=== PATIENT | male | born 1950 | race Caucasian/White ===

== ENCOUNTER 2021-11-26 15:54 | Outpatient (RCR) | payer MEDICARE, BC, SELFPAY ==
[2021-11-26 16:25] LABS: Basophils Absolute Auto 0.04 K/uL (0.00-0.30); Basophils Percent Auto 0.7 % (0.0-3.0); Eosinophils Percent Auto 6.6 % (0.0-7.0); Hematocrit 40.5 % (37.0-53.0); Hemoglobin* 12.6 gm/dL (13.5-17.5); Lymphocytes Absolute Auto 1.52 K/uL (0.90-2.90); Mean Corpuscular HGB Conc 31 gm/dL (32-36); Mean Corpuscular Hemoglobin 25 pg (26-34); Mean Corpuscular Volume 82 fL (80-100); Monocytes Percent Auto 8.4 % (0.0-11.0); Neutrophils Percent Auto 59.3 % (42.0-72.0); Platelet Count* 313 K/uL (140-440); RDW Coefficient of Variation % 13.7 % (11.5-15.5); Red Blood Count 4.96 m/uL (4.30-5.90); White Blood Count* 6.07 K/uL (4.50-11.00)
[2021-11-26 16:32] LABS: Slide Review Reflex No
[2021-11-26 17:20] LABS: PSA Diagnostic* < 0.06 ng/mL (0.10-4.00)
== END 2022-11-05 11:50 | disposition home or self-care (01) ==
LOC: LAB 15:54
PROVIDERS: Visit Provider Family Medicine
DX: C61 Malignant neoplasm of prostate (principal); R14.0 Abdominal distension (gaseous)
CPT/HCPCS: 36415; 84153; 85025

== ENCOUNTER 2022-02-17 10:36 | Outpatient (CLI) | payer MEDICARE, BC, SELFPAY ==
--- OUTSIDE RECORDS SUMMARY | 2022-02-17 11:17 | XMS_ITS | Encounter Summary ---
:1950 Author Organization [place] Address [address] [place] [address] Care Team Providers Name Role Phone Nico Joseph MD Primary Care Provider Nico Joseph MD Unavailable Pardeep Gallagher MD Unavailable Reason for Visit Reason Onset Date Comments Results 06/26/2021 Comparison of blood test and urine test Encounter Details Date Type Department Care Team Description 06/26/[address] [facility] Pardeep Gallagher MD Results (Comparison of Urology Clinic [address] [place] [address] blood test and urine [place] 394 test) [address] [place], [place] [address] [place] [address] (Wo rk) [address] [phone] Social History Tobacco Use Types Packs/Day Years Used Date Smoking Tobacco: Never Assessed Sex Assigned at Date Recorded Not on file COVID-19 Exposure Response Date Recorded In the last 10 days, have you been in contact Unable to asse ss 06/25/2021 1:55 PM CDT with someone who was confirmed or suspected to have Coronavirus/COVID-19? documented as of this encounter Miscellaneous Notes Telephone Encounter - Angelita Nunes RN - 06/27/2021 10:33 AM CDT Spoke to pt. Informed pt that lab results will take a couple of weeks to process. Will let pt know when results are received. Angelita Nunes RN MSN Telephone Encounter - Doreen Kennedy - 06/26/2021 4:02 PM CDT [facility] Call Center Phone Message May a detailed message be left on voicemail: yes Reason for Call: Requesting Results Name/type of test: Bloodwork and Urine test comparison per patient Date of test: 06/19/21 Was test done at a location other than [facility] (Please fill in the location if not [facility])?: No Patient is calling to have Dr. Gallagher go over his recent urine test and compare it to his most recent blood tests. He states he called last week to discuss and missed a call back. Please reach out to patient at [phone] and if he doesn't answer, please call 's cell at [phone]. Thank you. Action Taken: Other: Urology Travel Screening: Not Applicable documented in this encounter Plan of Treatment Not on filedocumented as of this encounter Visit Diagnoses Not on filedocumented in this encounter Care Teams Materials And Corrosion Engineer Relationship Specialty Start Date End Date Nico Joseph MD PCP - General Family Medicine 05/06/21 [facility] [address] [place] [address] Nico Joseph MD Referring Physician Family Medicine 05/12/21 [facility] [address] [place] [address] Pardeep Gallagher MD MD Urology 05/12/[address] [address] documented as of this encounter
--- OUTSIDE RECORDS SUMMARY | 2022-02-17 11:17 | XMS_ITS | Encounter Summary ---
:1950 Author Organization [place] Address [facility] [place] [address] Care Team Providers Name Role Phone Nico Joseph MD Primary Care Provider Nico Joseph MD Unavailable Pardeep Gallagher MD Unavailable Reason for Visit Reason Onset Date Comments Pre Visit Planning - Done 06/05/2021 Encounter Details Date Type Department Care Team Description 06/05/2021 PRE VISIT [facility] Pardeep Gallagher MD Pre Visit Planning - Urology Clinic [address] [place] [address] Done [place] [address] [place], [place] 4th Floor [address] [place], [place] [phone] (Wo rk) [id number] [phone] Social History Tobacco Use Types Packs/Day Years Used Date Smoking Tobacco: Never Assessed Sex Assigned at Date Recorded Not on file documented as of this encounter Plan of Treatment Not on filedocumented as of this encounter Visit Diagnoses Not on filedocumented in this encounter Care Teams Media Services Director Relationship Specialty Start Date End Date Nico Joseph MD PCP - General Family Medicine 05/06/21 [facility] [address] [place] [address] Nico Joseph MD Referring Physician Family Medicine 05/12/21 [facility] [address] [place] [address] Pardeep Gallagher MD MD Urology 05/12/[address] [place] [address] documented as of this encounter
--- OUTSIDE RECORDS SUMMARY | 2022-02-17 11:17 | XMS_ITS | Encounter Summary ---
:1950 Author Organization [place] Address [address] [facility] [place] [address] Care Team Providers Name Role Phone Nico Joseph MD Primary Care Provider Nico Joseph MD Unavailable Pardeep Gallagher MD Unavailable Pardeep Gallagher MD Unavailable Reason for Visit Reason Onset Date Comments Pre Visit Planning - Done 07/15/2021 Encounter Details Date Type Department Care Team Description 07/15/2021 PRE VISIT [facility] Pardeep Gallagher MD Pre Visit Planning - Urology Clinic [address] [place] [address] Done [place] [address] [place], [place] [address] [place] [address] (Wo rk) [address] [phone] Social History Tobacco Use Types Packs/Day Years Used Date Smoking Tobacco: Never Assessed Sex Assigned at Date Recorded Not on file COVID-19 Exposure Response Date Recorded In the last 10 days, have you been in contact Unable to asse ss 06/25/2021 1:55 PM CDT with someone who was confirmed or suspected to have Coronavirus/COVID-19? documented as of this encounter Plan of Treatment Not on filedocumented as of this encounter Visit Diagnoses Not on filedocumented in this encounter Care Teams Hand Crocheter Relationship Specialty Start Date End Date Nico Joseph MD PCP - General Family Medicine 05/06/21 [facility] [address] [place] [address] Nico Joseph MD Referring Physician Family Medicine 05/12/21 [facility] [address] [place] [address] Pardeep Gallagher MD MD Urology 05/12/[address] [place] [address] Pardeep Gallagher MD Assigned Surgical Provider 06/29/[address] [place] [address] documented as of this encounter
--- OUTSIDE RECORDS SUMMARY | 2022-02-17 11:17 | XMS_ITS | Encounter Summary ---
:1950 Author Organization [place] Address [address] [place] [address] Care Team Providers Name Role Phone Nico Joseph MD Primary Care Provider Nico Joseph MD Unavailable Pardeep Gallagher MD Unavailable Encounter Details Date Type Department Care Team Description 06/19/2021 [facility] Urology Pardeep Gallagher MD [address] [place] [address] [phone] Social History Tobacco Use Types Packs/Day Years Used Date Smoking Tobacco: Never Assessed Sex Assigned at Date Recorded Not on file COVID-19 Exposure Response Date Recorded In the last 10 days, have you been in contact with No / Unsu re 06/18/2021 2:09 PM CDT someone who was confirmed or suspected to have Coronavirus/COVID-19? documented as of this encounter Miscellaneous Notes Telephone Encounter - Angelita Nunes RN - 06/19/2021 2:17 PM CDT Images from the original note were not included. Ana Luisa Seo Angie J, RN Cc: Susie Bradley Caller: Unspecified (Today, 12:03 PM) Results have been received and sent to scanning. I have forwared the PSA results to [facility] as requested. Telephone Encounter - Angelita Nunes RN - 06/19/2021 1:24 PM CDT Spoke to pt. Informed pt to PSA order needing to be done today or tomorrow. Pt reports he had lab done at local clinic 3 weeks ago. Advised pt to have them fax to clinic [facility]. He agrees. Provided pt clinic fax number. Angelita Nunes RN MSN Telephone Encounter - Angelita Nunes RN - 06/19/2021 12:17 PM CDT Spoke to Kenna Montiel for MyProstate Score. PSA needs to be done within the last 6 months in orderto have accurate test done. Informed her last documented was 04/22/20. She reports an updated PSA needs to be done today or tomorrow. She would like results faxed to her at [phone]. Angelita Nunes RN MSN Telephone Encounter - Doreen Kennedy - 06/19/2021 12:02 PM CDT [facility] Call Center Phone Message May a detailed message be left on voicemail: yes Reason for Call: Tiana from [facility] is calling regarding patient's most recent PSA. She states the paperwork shows the date on the PSA as 04/19/19 and is wondering if that is an error. If so, PSA will need to be redrawn. If not an error, please reach out with correct date of most recent PSA. Please call Tiana at [phone] [facility] either way as they can freeze thesample if needed. Thank you. Action Taken: Other: Urology Travel Screening: Not Applicable documented in this encounter Plan of Treatment Scheduled Orders Name Type Priority Associated Diagnoses Order S chedule PSA tumor marker Lab Routine PSA elevation Expected: 06/19/2021 (Approximate), Expires: 06/19/2022 documented as of this encounter Visit Diagnoses Diagnosis PSA elevation - Primary Elevated prostate specific antigen (PSA) documented in this encounter Care Teams Manager Transfer Relationship Specialty Start Date End Date Nico Joseph MD PCP - General Family Medicine 05/06/21 [facility] [address] [place] [address] Nico Joseph MD Referring Physician Family Medicine 05/12/21 [facility] [address] [place] [address] Pardeep Gallagher MD MD Urology 05/12/[address] [place] [id number] documented as of this encounter
--- OUTSIDE RECORDS SUMMARY | 2022-02-17 11:17 | XMS_ITS | Encounter Summary ---
:1950 Author Organization [place] Address [address] [facility] [place] [address] Care Team Providers Name Role Phone Nico Joseph MD Primary Care Provider Nico Joseph MD Unavailable Pardeep Gallagher MD Unavailable Reason for Referral Diagnostic Imaging MRI (Routine) - Authorized Specialty Diagnoses / Procedures Referred By Contact Refer red To Contact Diagnoses PSA elevation Pardeep Gallagher MD Procedures MR Prostate wo & w Contrast [address] [facility] [address] [place], [place] [address] Referral ID Status Reason Start Date Expiration Date Visits V isits Requested Authorized [id number] Authorized 06/18/2021 06/18/2022 1 1 Reason for Visit Reason Comments Consult Elevated PSA Consultation (Routine) - Pending Review Specialty Diagnoses / Procedures Referred By Contact Refer red To Contact Urology Diagnoses PSA elevation Nico Joseph MD [facility] [address] [facility] [address] 4th [place] [address] [place] [address] Phone: Fax: Referral ID Status Reason Start Date Expiration Date Visits V isits Requested Authorized [id number] Pending 05/06/2021 05/06/2022 1 1 Review Encounter Details Date Type Department Care Team Description 06/18/2021 Office Visit [facility] Nico Adamson MD [facility] [address] [place] [address] PSA elevation [facility] [place] Pardeep Gallagher MD [address] [facility] [address] [place], [place] [address] [address] [facility] [address] 4th [place] [address] Social History Tobacco Use Types Packs/Day Years Used Date Smoking Tobacco: Never Assessed Sex Assigned at Date Recorded Not on file COVID-19 Exposure Response Date Recorded In the last 10 days, have you been in contact with No / Unsu re 06/18/2021 2:09 PM CDT someone who was confirmed or suspected to have Coronavirus/COVID-19? documented as of this encounter Last Filed Vital Signs Vital Sign Reading Time Taken Comments Blood Pressure 126/82 06/18/2021 2:42 PM CDT Pulse 59 06/18/2021 2:42 PM CDT Temperature - - Respiratory Rate - - Oxygen Saturation - - Inhaled Oxygen Concentration - - Weight 102.1 kg (225 lb) 06/18/2021 2:42 PM CDT Height 182.9 cm (6') 06/18/2021 2:42 PM CDT Body Mass Index 30.52 06/18/2021 2:42 PM CDT documented in this encounter Patient Instructions Patient InstructionsMaryan Nolan - 06/18/2021 3:54 PM CDT Please schedule a prostate MRI and Dr. Gallagher will call you with the results. It was a pleasure meeting with you today. Thank you for allowing me and my team the privilege of caring for you today. YOU are the reason we are here, and I truly hope we provided you with the excellent service you deserve. Please let us know if there is anything else we can do for you so that we can be sure you are leaving completely satisfied with your care experience. documented in this encounter Progress Notes Pardeep Gallagher MD - 06/18/2021 2:30 PM CDT Chief Complaint: Elevated PSA Consult or Referral: Mr. Jay Ferris is a 71 year old male seen in consultation from Dr. Joseph. History of Present Illness: Jay Ferris is a very pleasant 71 year old male who presents with elevated PSA. He denies lowerurinary symptoms. He denies family history of prostate cancer. He is not a smoker. ECOG status 0 Past Medical History: No past medical history on file. Past Surgical History: No past surgical history on file. Medications Current Outpatient Medications Medication ??? lisinopril (ZESTRIL) 20 MG tablet ??? aspirin (ASA) 81 MG EC tablet ??? doxycycline monohydrate (MONODOX) 100 MG capsule No current facility-administered medications for this visit. Family History: No family history on file. Social History: Social History Socioeconomic History ??? Marital status: Spouse name: Not on file ??? Number of children: Not on file ??? Years of education: Not on file ??? Highest education level: Not on file Occupational History ??? Not on file Tobacco Use ??? Smoking status: Not on file ??? Smokeless tobacco: Not on file Substance and Sexual Activity ??? Alcohol use: Not on file ??? Drug use: Not on file ??? Sexual activity: Not on file Other Topics Concern ??? Not on file Social History Narrative ??? Not on file Social Determinants of Health Financial Resource Strain: Not on file Food Insecurity: Not on file Transportation Needs: Not on file Physical Activity: Not on file Stress: Not on file Social Connections: Not on file Intimate Partner Violence: Not on file Housing Stability: Not on file Allergies: Patient has no known allergies. Review of Systems 10 point ROS of systems including Constitutional, Eyes, Respiratory, Cardiovascular, Gastroenterology, Genitourinary, Integumentary, Muscularskeletal, Psychiatric were all negative except for pertinentpositives noted in my HPI. Physical Exam: Patient is a 71 year old male Body mass index is 30.52 kg/m??., Vitals: Blood pressure 126/82, pulse 59, height 1.829 m (6'), weight 102.1 kg (225 lb). General Appearance Adult: Alert, no acute distress, oriented HENT: throat/mouth:normal, good dentition Neck: No adenopathy,masses or thyromegaly Lungs: no respiratory distress, or pursed lip breathing Heart: No obvious jugular venous distension present Abdomen: soft, nontender, no organomegaly or masses Lymphatics: No cervical or supraclavicular adenopathy Musculoskeltal: extremities normal, no peripheral edema Skin: no suspicious lesions or rashes Neuro: Alert, oriented, speech and mentation normal Psych: affect and mood normal Gait: Normal : REECE anodular, symmetric Labs and Pathology: I reviewed all applicable laboratory and pathology data and went over findings with patient Significant for No results found for: PSA Imaging: No relevant imaging to review today Outside and Past Medical records: I spent 20 minutes reviewing outside and past medical records. Assessment and Plan: Assessment: Elevated PSA We had a long discussion about the utility of PSA screening. We talked about the Pros and Cons. We discussed the findings of the PLCO and EORTC studies. We discussed the results of the Scandinavian trial of treatment vs. observation in clinically detected prostate cancer as well as the results of the PIVOT trial in the context of screen-detected cancer. We discussed the recommendations by the AUA, and USPSTF. We also discussed the significant (2-6%) and rising risk of biopsy associated sepsis. We also discussed the emerging role of MRI in the diagnosis of prostate cancer and the potential forperforming MRI-Ultrasound Fusion biopsy if suspicious lesions are noted. We also discussed some of the new methods of risk stratification for prostate cancer including 4K, PHI, Exsome Dx to identify clinically significant and aggressive prostate cancer before biopsy. New data suggest that combination of these tests with MRI could avoid unnecessary prostate biopsy in significant percent of men with elevated PSA. Another available option in this group is MyProstateScore which provided 96% sensitivity and 97% negative predictive value, and would have prevented 32% of unnecessary biopsies, missing 3.7% of grade group ?2 cancers at the levels below 10. Patient has decided he would like to proceed with prostate MRI and MPS test Plan: Schedule for prostate MRI Send off urine sample for MPS Call with the results to discuss the next steps 60 total minutes spent on the date of the encounter including direct interaction with the patient, performing chart review, documentation and further activities as noted above. Pardeep Gallagher MD Department of Urology [facility] documented in this encounter Nursing Notes WillinghamBlaine - 06/18/2021 2:30 PM CDT Chief Complaint Patient presents with ??? Consult Elevated PSA Blood pressure 126/82, pulse 59, height 1.829 m (6'), weight 102.1 kg (225 lb). Body mass index is 30.52 kg/m??. There is no problem list on file for this patient. No Known Allergies Current Outpatient Medications Medication Sig Dispense Refill ??? lisinopril (ZESTRIL) 20 MG tablet Daily ??? aspirin (ASA) 81 MG EC tablet Daily ??? doxycycline monohydrate (MONODOX) 100 MG capsule TAKE 1 CAPSULE BY MOUTH TWICE DAILY FOR 14 DAYS Blaine Willingham 06/18/2021 2:44 PM documented in this encounter Plan of Treatment Scheduled Orders Name Type Priority Associated Diagnoses Order S chedule MR Prostate wo & w Imaging Routine PSA elevation Expected : 06/18/2021 Contrast (Approximate), Expires: 06/18/2022 documented as of this encounter Visit Diagnoses Diagnosis PSA elevation Elevated prostate specific antigen (PSA) documented in this encounter Care Teams Portable Track Crew Chief Relationship Specialty Start Date End Date Nico Joseph MD PCP - General Family Medicine 05/06/21 [facility] [address] [place] [address] Nico Joseph MD Referring Physician Family Medicine 05/12/[address] [facility] [address] [place] [address] Pardeep Gallagher MD MD Urology 05/12/[address] [address] documented as of this encounter
--- OUTSIDE RECORDS SUMMARY | 2022-02-17 11:17 | XMS_ITS | Encounter Summary ---
:1950 Author Organization [place] Address [facility] [place] [address] Care Team Providers Name Role Phone Nico Joseph MD Primary Care Provider Nico Joseph MD Unavailable Pardeep Gallagher MD Unavailable Encounter Details Date Type Department Care Team Description 06/18/2021 Travel Social History Tobacco Use Types Packs/Day Years [...] on filedocumented in this encounter Care Teams Chemistry Tutor Relationship Specialty Start Date End Date Nico Joseph MD PCP - General Family Medicine 05/06/21 [facility] [address] [place] [address] Nico Joseph MD Referring Physician Family Medicine 05/12/21 [facility] [address] [place] [address] Pardeep Gallagher MD MD Urology 05/12/[address] [facility] 394 [place], [place] [address] documented as of this encounter
--- OUTSIDE RECORDS SUMMARY | 2022-02-17 11:17 | XMS_ITS | Encounter Summary ---
:1950 Author Organization [place] Address [address] [place] [address] Care Team Providers Name Role Phone Nico Jsoeph MD Primary Care Provider Nico Joseph MD Unavailable Pardeep Gallagher MD Unavailable Reason for Visit Reason Onset Date Comments Results 06/25/2021 urine Encounter Details Date Type Department Care Team Description 06/25/2021 Telephone [facility] Urology Pardeep Gallagher MD Results (urine) Clinic [address] [place] [id number] [place] [address] [place] [address] Social History Tobacco Use Types [...] Encounter - Angelita Nunes RN - 06/27/2021 10:26 AM CDT Spoke to pt. Informed pt that urine sample taken was for the PSA score and was sent to an outside lab where it will take a couple weeks for receive results. Pt expressed that he understands and looks forward to receiving those results when they arrive. No other questions at this time. Angelita Nunes RN MSN Telephone Encounter - Angelita Nunes RN - 06/26/2021 1:58 PM CDT Spoke to pt's Vivian. She reports that someone took a urine sample during recent office visit and was told results will be relayed when received. Will check with staff working with pt that day. Angelita Nunes RN MSN Telephone Encounter - Adelina Puga - 06/26/2021 8:36 AM CDT Pt and pts called stated pt missed a call yesterday and would like a call back - please diane pt and pts to further discuss, thanks! Telephone Encounter - Angelita Nunes RN - 06/25/2021 3:36 PM CDT Attempted to call pt. Left detailed message to call clinic back at [phone]. No urine test results are available. Angelita Nunes RN MSN Telephone Encounter - Deepthi Boateng - 06/25/2021 1:57 PM CDT [facility] Phone Message May a detailed message be left on voicemail: yes Reason for Call: Requesting Results Name/type of test: Urine test Date of test: 06/18/21 Was test done at a location other than [facility] (Please fill in the location if not [facility])?: No Action Taken: Message routed to: [facility] Urology Travel Screening: Not Applicable documented in this encounter Plan of Treatment Not on filedocumented as of this encounter Visit Diagnoses Not on filedocumented in this encounter Care Teams Assistant Golf Coach Relationship Specialty Start Date End Date Nico Joseph MD PCP - General Family Medicine 05/06/21 [facility] [address] [place] [address] Nico Joseph MD Referring Physician Family Medicine 05/12/21 [facility] [address] [place] [address] Pardeep Gallagher MD MD Urology 05/12/[address] [place] [address] documented as of this encounter
--- OUTSIDE RECORDS SUMMARY | 2022-02-17 11:17 | XMS_ITS | Encounter Summary ---
:1950 Author Organization [place] Address [facility] [place] [address] Care Team Providers Name Role Phone Nico Joseph MD Primary Care Provider Nico Joseph MD Unavailable Pardeep Gallagher MD Unavailable Encounter Details Date Type Department Care Team Description 06/25/2021 Travel Social History Tobacco Use Types Packs/Day [...] on filedocumented in this encounter Care Teams Threat Analyst Relationship Specialty Start Date End Date Nico Joseph MD PCP - General Family Medicine 05/06/21 [facility] [address] [place] [address] Ncio Joseph MD Referring Physician Family Medicine 05/12/21 [facility] [address] [place] [address] Pardeep aGllagher MD MD Urology 05/12/[address] [facility] [address] [place], [place] [address] documented as of this encounter
--- OUTSIDE RECORDS SUMMARY | 2022-02-17 11:17 | XMS_ITS | Clinical Summary ---
:1950 Author Organization [facility] Address [address] [place] [address] Care Team Providers Name Role Phone Nico Joseph MD Primary Care Provider Nico Joseph MD Unavailable Pardeep Gallagher MD Unavailable Pardeep Gallagher MD Unavailable Allergies No known active allergies Medications Medication Sig Dispensed Refills Start Date End Date Status aspirin (ASA) 81 MG EC Daily 0 Active tablet doxycycline TAKE 1 CAPSULE BY 0 06/27/2020 Active monohydrate (MONODOX) MOUTH TWICE DAILY 100 MG capsule FOR 14 DAYS lisinopril (ZESTRIL) Daily 0 04/23/2021 Active 20 MG tablet Social History Tobacco Use Types Packs/Day Years Used Date Smoking Tobacco: Never Assessed Sex Assigned at Date Recorded Not on file Last Filed Vital Signs Vital Sign Reading [...] Mass Index 30.52 06/18/2021 2:42 PM CDT Plan of Treatment Health Maintenance Due Date Last Done Comments ADVANCE CARE PLANNING 1950 ANNUAL REVIEW OF HM ORDERS 1950 CT COLONOGRAPHY 1950 FIT-DNA (Cologuard) 1950 FIT 1950 FLEX SIG 1950 COLONOSCOPY 01/13/1960 COLORECTAL CANCER SCREENING 01/13/1960 HEPATITIS C SCREENING 01/13/1968 AORTIC ANEURYSM SCREENING 2015 (SYSTEM ASSIGNED) FALL RISK ASSESSMENT 2015 MEDICARE ANNUAL WELLNESS 2015 VISIT COVID-19 Vaccine (4 - 04/21/2021 02/24/2021, 06/01/2020, Booster for Pfizer series) 05/11/2020 ZOSTER IMMUNIZATION (2 of 07/17/2021 05/22/2021 2) INFLUENZA VACCINE (#1) 2021 11/29/2019 LIPID 04/23/2026 04/23/2021, 04/22/2021, 04/19/2019 DTAP/TDAP/TD IMMUNIZATION 04/23/2031 04/23/2021, 10/17/2012 , (3 - Td or Tdap) 10/17/2012, Additional history exists Pneumococcal Vaccine: 65+ Completed 04/14/2017, 03/25/2016 Years PHQ-2 (once per calendar Completed 06/22/2021 year) IPV IMMUNIZATION Aged Out No longer eligi ble based on patient 's age to complete this topic MENINGITIS IMMUNIZATION Aged Out No longe r eligible based on patient 's age to complete this topic Insurance Payer Benefit Plan / Subscriber ID Effective Phone Address T ype Group Dates MEDICARE MEDICARE FOR HB [id number] 2015-Pres [phone] ATTN CLAIMS Medicare SUPPLEMENT ent 40 [address] [place] [address] BCBS BC[place] [id number] 2016-Prese [phone] [address] [address] PPO BLUE nt 00 [place] [address] Care Teams Dat Instructor Relationship Specialty Start Date End Date Nico Joseph MD PCP - General Family Medicine 05/06/21 [facility] [address] [place] [address] Nico Joseph MD Referring Physician Family Medicine 05/12/21 [facility] [address] [place] [address] Pardeep Gallagher MD MD Urology 05/12/[address] [place] [address] [phone] Pardeep Gallagher MD Assigned Surgical Provider 06/29/[address] [place] [address] [phone]
--- OUTSIDE RECORDS SUMMARY | 2022-02-17 11:17 | XMS_ITS | Encounter Summary ---
:1950 Author Organization [facility] Address [address] [place] [address] Care Team Providers Name Role Phone Nico Joseph MD Primary Care Provider Nico Joseph MD Unavailable Pardeep Gallagher MD Unavailable Pardeep Gallagher MD Unavailable Reason for Visit Reason Onset Date Comments Appointment 07/10/2021 Prostate Cancer Encounter Details Date Type Department Care Team Description 07/10/2021 Telephone [facility] Pardeep Gallagher MD Appointment (Prostate Urology Clinic [address] [place] [address] ) [place] [address] [place] [address] [address]th [id number] [place] [address] (Wo rk) [address] [phone] Social History Tobacco Use Types Packs/Day Years [...] Telephone Encounter - Angelita Nunes RN - 07/11/2021 10:15 AM CDT Spoke to pt's . Assisted to reschedule for sooner appointment. Angelita Nunes RN MSN Telephone Encounter - Haider Flores - 07/10/2021 4:27 PM CDT [facility] Call Center Phone Message May a detailed message be left on voicemail: yes Reason for Call: The patients called stating the MRI results showed cancer, and would like to get in as soon as possible. He is currently schedule 08/25/21. If there are any questions, Dr. Xavier Joseph at [facility] through [facility]. [facility] number is [phone] or the [facility] were the MRI took place is [phone]. Please advise. Thank you. Action Taken: Message routed to: [facility] ([facility]): Urology Travel Screening: Not Applicable documented in this encounter Plan of Treatment Not on filedocumented as of this encounter Visit Diagnoses Not on filedocumented in this encounter Care Teams Wire Spinner Relationship Specialty Start Date End Date Nico Joseph MD PCP - General Family Medicine 05/06/21 [facility] [address] [place] [address] Nico Joseph MD Referring Physician Family Medicine 05/12/21 [facility] [address] [place] [address] Pardeep Gallagher MD MD Urology 05/12/[address] [place] [address] [phone] Pardeep Gallagher MD Assigned Surgical Provider 06/29/[address] [place] [address] [phone] documented as of this encounter
--- OUTSIDE RECORDS SUMMARY | 2022-02-17 11:17 | XMS_ITS | Encounter Summary ---
:1950 Author Organization [place] Address [address] [place] [address] Care Team Providers Name Role Phone Nico Joseph MD Primary Care Provider Nico Joseph MD Unavailable Pardeep Gallagher MD Unavailable Pardeep Gallagher MD Unavailable Reason for Visit Reason Onset Date Comments Call Back 07/01/2021 New psa levels and r equisitions Encounter Details Date Type Department Care Team Description 07/01/2021 Telephone [facility] Alessandro Mijares Call Back (New psa Urology Clinic MD Homero levels and [address] requisitions) [address] [place] [address] [address] [place] [address] (Wo rk) [address] [phone] Social History Tobacco Use Types Packs/Day Years [...] this encounter Miscellaneous Notes Telephone Encounter - Adelina Clay RN - 07/01/2021 2:37 PM CDT PSA completed Apr and again in may. Will fax to Tiana at [phone] Telephone Encounter - Iron Hayes - 07/01/2021 10:40 AM CDT [facility] Phone Message May a detailed message be left on voicemail: yes Reason for Call: Other: Maritza is calling needing new PSA levels and requisitions filled out from Dr. Mijares. Please call her back with questions, thanks! Action Taken: Message routed to: [facility] uro Travel Screening: Not Applicable documented in this encounter Plan of Treatment Not on filedocumented as of this encounter Visit Diagnoses Not on filedocumented in this encounter Care Teams Database Development Project Manager Relationship Specialty Start Date End Date Nico Joseph MD PCP - General Family Medicine 05/06/21 [facility] [address] [place] [address] Nico Joseph MD Referring Physician Family Medicine 05/12/21 [facility] [address] [place] [address] Pardeep Gallagher MD MD Urology 05/12/[address] [place] [place] [phone] Pardeep Gallagher MD Assigned Surgical Provider 06/29/[address] [place] [address] [phone] documented as of this encounter
--- OUTSIDE RECORDS SUMMARY | 2022-02-17 11:17 | XMS_ITS | Encounter Summary ---
:1950 Author Organization [facility] Address [address] [place] [address] Care Team Providers Name Role Phone Nico Joseph MD Primary Care Provider Nico Joseph MD Unavailable Pardeep Gallagher MD Unavailable Reason for Visit Reason Onset Date Comments Previsit 05/28/2021 Encounter Details Date Type Department Care Team Description 05/28/2021 PRE VISIT [facility] Urology Pardeep Gallagher MD Previsit Clinic [id number] [place] [address] Floor [place], [place] [address] [phone] Social History Tobacco Use Types Packs/Day Years Used Date Smoking Tobacco: Never Assessed Sex Assigned at Date Recorded Not on file documented as of this encounter Miscellaneous Notes Telephone Encounter - Jyoti Marmolejo - 05/28/2021 8:46 PM CDT MEDICAL RECORDS REQUEST [facility] [address] [place] [address] PHONE: [phone] FUTURE VISIT INFORMATION Jay Ferris, : 1950 scheduled for future visit at [facility] APPOINTMENT INFORMATION: ?? Date: 06/18/2021 ?? Provider: Pardeep Gallagher MD ?? Reason for Visit/Diagnosis: elevated PSA REFERRAL INFORMATION: ?? Referring provider: Nico Joseph MD ?? Referring providers clinic: [facility] ?? Clinic contact number: ; RECORDS REQUESTED FOR VISIT NOTES STATUS/DETAILS OFFICE NOTE from referring provider receieved Yes, 05/23/2021, 04/23/2021 -- Nico Joseph MD -- [facility] MEDICATION LIST received Yes, [place] [facility] PSA (LAB) received Yes, 05/23/2021, 04/23/2021, 04/22/2020, 04/19/2019 PRE-VISIT CHECKLIST Record collection complete yes Appointment appropriately scheduled (right time/right provider) Yes Joint diagnostic appointment coordinated correctly (ensure right order & amount of time) Yes MyChart activation No Questionnaire complete If no, please explain pending Action 05/28/2021 JTV 8:49pm Action Taken [facility] sent a request to [facility], ; for records. Action 05/30/2021 JTV 10:23am Action Taken [facility] received records from [facility]. Records sent to scanning for processing. documented in this encounter Plan of Treatment Not on filedocumented as of this encounter Visit Diagnoses Not on filedocumented in this encounter Care Teams Pony Ride Attendant Relationship Specialty Start Date End Date Nico Joseph MD PCP - General Family Medicine 05/06/21 [facility] [address] [place] [address] Nico Joseph MD Referring Physician Family Medicine 05/12/21 [facility] [address] [place] [address] Pardeep Gallagher MD MD Urology 05/12/[address] [id number] documented as of this encounter
--- OUTSIDE RECORDS SUMMARY | 2022-02-17 11:17 | XMS_ITS | Encounter Summary ---
:1950 Author Organization [place] Address [address] [place] [address] Care Team Providers Name Role Phone Nico Joseph MD Primary Care Provider Nico Joseph MD Unavailable Pardeep Gallagher MD Unavailable Pardeep Gallagher MD Unavailable Encounter Details Date Type Department Care Team Description 07/01/2021 Telephone [facility] Urology Alessandro Butt MD Clinic [address] [address] 4th Floor [place] [phone] Social History Tobacco Use Types Packs/Day Years [...] this encounter Miscellaneous Notes Telephone Encounter - Susie Bradley - 07/07/2021 8:52 AM CDT Images from the original note were not included. An, Maryan You 3 days ago YP I informed her of the previous fax being sent and confirmed the fax number with her before initiating another fax. Her number is [phone]. Thank you Locksmith Apprentice called and spoke with Tiana. Tiana stated this fax most likely has been received. Tiana will call back if needed, Tiana is driving at the moment. Tiana inquired about another pt. Locksmith Apprentice continuing documentation in that encounter in the other pt's chart. Telephone Encounter - Susie Bradley - 07/04/2021 1:10 PM CDT Maryan Nolan Emily Hello, Can you fax this pt's last PSA result to this number [phone], it seems the recipient Tiana hasnot received it yet. The last PSA result is in a scan from [facility] dated 05/23/2021. Thank you Locksmith Apprentice refaxed 05/23 PSA results to [phone]. Done 07/04/2021 at 1:10pm. Locksmith Apprentice inquiring about a phone number since this is the 3rd fax to be sent and recipient has yet to receive. Telephone Encounter - Susie Bradley - 07/01/2021 2:42 PM CDT Locksmith Apprentice faxed scanned in lab results from 05/23 to Tiana at [phone]. Done 07/01/2021 at 2:42pm Locksmith Apprentice additionally faxed to to ensure arrival. documented in this encounter Plan of Treatment Not on filedocumented as of this encounter Visit Diagnoses Not on filedocumented in this encounter Care Teams Pathology Collector Relationship Specialty Start Date End Date Nico Joseph MD PCP - General Family Medicine 05/06/21 [facility] [address] [place] [address] Nico Joseph MD Referring Physician Family Medicine 05/12/21 [facility] [address] [place] [address] Pardeep Gallagher MD MD Urology 05/12/[address] [place] [address] [phone] Pardeep Gallagher MD Assigned Surgical Provider 06/29/[address] [place] [address] [phone] documented as of this encounter
--- OUTSIDE RECORDS SUMMARY | 2022-02-17 11:18 | XMS_ITS | Encounter Summary ---
:1950 Author Organization [facility] Address [address] [facility] [place] [address] Care Team Providers Name Role Phone Nico Joseph MD Primary Care Provider Reason for Visit Reason Onset Date Comments *-*INCOMING RECORDS*-* 05/06/2021 Encounter Details Date Type Department Care Team Description 05/06/2021 PRE VISIT [facility] Provider, Generic *-*IN COMING RECORDS*-* Urology Clinic External Data [place] [id number] [facility] [address] 4[address] [place] [address] Social History Tobacco Use Types Packs/Day Years Used Date Smoking Tobacco: Never Assessed Sex Assigned at Date Recorded Not on file documented as of this encounter Miscellaneous Notes Telephone Encounter - Ana Luisa Seo - 05/06/2021 1:21 PM CST Action 05/06/21 MMT Action Taken CSS received incoming referral and records from [facility] for elevated PSA. Documents sent to scanning. Patient is not yet scheduled. R WORKER SPECIALIST documented in this encounter Plan of Treatment Not on filedocumented as of this encounter Visit Diagnoses Not on filedocumented in this encounter Care Teams Chemistry Associate Relationship Specialty Start Date End Date Nico Joseph MD PCP - General Family Medicine 05/06/21 [facility] [address] [place] [address] documented as of this encounter
--- OUTSIDE RECORDS SUMMARY | 2022-02-17 11:18 | XMS_ITS | Encounter Summary ---
:1950 Author Organization [facility] Address [address] [facility] [place] [address] Care Team Providers Name Role Phone Nico Joseph MD Primary Care Provider Reason for Referral Consultation (Routine) - Pending Review Specialty Diagnoses / Procedures Referred By Contact Refer red To Contact Urology Diagnoses PSA elevation Nico Joseph MD [facility] [address] [facility] [address] 4th [place] [address] [place] [address] Phone: Fax: Referral ID Status Reason Start Date Expiration Date Visits V isits Requested Authorized [id number] Pending 05/06/2021 05/06/2022 1 1 Review ESS ANALYST Encounter Details Date Type Department Care Team Description 05/06/2021 Transcribe Orders GENERIC EXTERNAL Provider, Generic P SA elevation DATA DEPARTMENT External Data (Primary Dx ) Social History Tobacco Use Types Packs/Day Years Used Date Smoking Tobacco: Never Assessed Sex Assigned at Date Recorded Not on file documented as of this encounter Plan of Treatment Scheduled Referrals Name Type Priority Associated Diagnoses Order S chedule Adult Urology Referral Referral [facility] PSA elevation Expe cted: 05/06/2021 (Approximate), Expires: 05/06/2022 documented as of this encounter Visit Diagnoses Diagnosis PSA elevation - Primary Elevated prostate specific antigen (PSA) documented in this encounter Care Teams Dollyman Relationship Specialty Start Date End Date Nico Joseph MD PCP - General Family Medicine 05/06/21 [facility] [address] [place] [address] documented as of this encounter
--- OUTSIDE RECORDS SUMMARY | 2022-02-17 11:18 | XMS_ITS | Clinical Summary ---
:1950 Author Organization [facility] [place] [address] Care Team Providers Name Role Phone Anmolrich Donna Pace MBBS Unavailable Deo Wiggins MBBS Unavailable Helen Piña RN Unavailable Xavier Joseph MD Primary Care Provider Denisse Courtney RN Unavailable Allergies No known active allergies Medications Medication Sig Dispensed Refills Start Date End Date Status aspirin (ECOTRIN) Take 81 mg by 0 Active 81 mg enteric mouth once daily. coated tablet lisinopriL Take 20 mg by 0 07/18/2021 Acti ve (PRINIVIL; ZESTRIL) mouth once daily. 20 mg tablet rosuvastatin Take 5 mg by mouth 0 07/18/2021 Active (CRESTOR) 5 mg once daily. tablet acetaminophen Take 2 Tablets 30 Tablet 0 10/03/2021 Active (TYLENOL EXTRA (1,000 mg) by STRGTH) 500 mg mouth every 6 tablet hours if needed for Pain. Max acetaminophen dose: 4000mg in 24 hrs. docusate (COLACE) Take 1 Capsule 20 Capsule 0 10/03/2021 Active 100 mg (100 mg) by mouth capsuleIndications: once daily if Prostate cancer needed for (HC) Constipation. Take to prevent constipation if taking narcotic pain medications. hydrocortisone Insert 1 20 Suppository 1 10/14/2021 Active (Anusol-HC) 25 mg Suppository (25 suppositoryIndicati mg) rectally in ons: External the morning and 1 hemorrhoids Suppository (25 mg) in the evening. sildenafil citrate Take 1 Tablet (25 50 Tablet 3 10/14/2021 Active (VIAGRA) 25 mg mg) by mouth once tabletIndications: daily if needed Erectile for Erectile dysfunction after Dysfunction (take radical maximum 3 times a prostatectomy week). Take 30min to 4 hours before sexual activity. 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 prostatectomy 10/14 Elevated PSA 08/05/2021 Benign prostatic hyperplasia with urinary frequency Prostate cancer Encounters Date Type Specialty Care Team Description 12/26/2021 Telephone Donna Norton MBBS 12/02/2021 Office Visit Donna Norton MBBS Fo llow Up 12/01/2021 Travel 12/01/2021 Telephone Donna Norton MBBS pr e-visit call 12/01/2021 Telephone Donna Norton MBBS Ph ysical Therapy 11/28/2021 Telephone Donna Norton MBBS Re naheed (Lab - call to [facility] for lab results ) 11/25/2021 Telephone Donna Norton MBBS La b (Lab orders faxed to another clinic ) 11/21/2021 Telephone Donna Norton MBBS Ap pointment (Lab orders prior to appoin tment with Dr. Norton faxe d to pt's Clinic as reque sted ) from Last 3 Months Family History Medical History Relation Name Comments Cancer-prostate Brother 1 Dany Cancer-prostate Brother 2 Benji Throat cancer Brother 3 Tucker Relation Name Status Comments Brother 1 Dany Brother 2 Benji Alive Brother 3 Tucker Alive Brother 4 Cabrera Alive Social History Tobacco Use Types Packs/Day Years Used Date Smoking Tobacco: Former Cigarettes Quit : 08/06/1971 Smokeless Tobacco: Never Comments: 4-6 cig per day only [employer] Alcohol Use Standard Drinks/Week Comments Not Currently 0 (1 standard drink = 0.6 oz pure alcoho l) none Sex Assigned at Date Recorded Not on file Obstetrics History Last Filed Vital Signs Vital Sign Reading Time Taken Comments Blood Pressure 127/73 12/02/2021 9:35 AM CDT Pulse 56 12/02/2021 9:35 AM CDT Temperature 36.3 ??C (97.4 ??F) 12/02/2021 9:35 AM CDT Respiratory Rate 14 12/02/2021 9:35 AM CDT Oxygen Saturation 99% 12/02/2021 9:35 AM CDT Inhaled Oxygen Concentration - - Weight 104.2 kg (229 lb 11.2 oz) 12/02/2021 9:35 AM CDT Height 182.9 cm (6') 12/02/2021 9:35 AM CDT Body Mass Index 31.15 12/02/2021 9:35 AM CDT Plan of Treatment Upcoming Encounters Date Type Specialty Care Team Description 06/02/2022 Office Visit Alban Norton MBBS [address] [facility] [address] [place] [address] (Wo rk) Health Maintenance Due Date Last Done Comments Tdap 1961 Depression screening for age 12+ 1962 Hepatitis C screening for age 1101/13/1968 18-79 Tetanus booster 1970 Colonoscopy through age 75 1995 Lipids for age 45-75 1995 Zoster (shingles) series for age 1101/13/2000 50+ (1 of 2) AAA screening age 55-77 2005 Medicare Wellness for age 65+ 2015 Pneumococcal series for age 65+ (1 2015 - PCV) Influenza for age 65+ 11/06/2021 COVID-19 vaccine series (5 - 11/11/2021 09/16/2021, 021, Booster for Pfizer series) 06/01/2020, Additiona l history exists BMI (ht and wt on same day) for 12/02/2022 12/02/2021, 08/0 11/2021, age 18+ 08/19/2021, Additional history exists Results Not on filefrom Last 3 Months Insurance Payer Benefit Plan / Subscriber ID Effective Dates Phone Addre ss Type Group MEDICARE PART A MEDICARE PART A [id number] 2015-Prese ATTN: CLAIMS - HB USE ONLY HB ONLY nt [address] [place] [address] MEDICARE PART B MEDICARE PART B [id number] 2015-Presen ATTN: CLAIMS - HB USE ONLY HB ONLY t [address] [place] [address] [place] [id number] 2016-Presen [address] [address] [place], [place] ONLY [id number] BLUE CROSS [place]SHUL CROSS [id number] 2016-[place]en [address] [address] [place] [id number] Advance Directives Latest Code Status on File Code Status Date Activated Date Inactivated Comments Full Code 10/03/2021 2:07 PM 10/04/2021 6:12 PM Question Answer Comments Code Status Discussion: Reviewed Preferences Care Teams Conductor Pullman Relationship Specialty Start Date End Date Xavier Joseph MD PCP - General Family Practice 09/15/21 [address], [place] [id number] Donna Norton, Surgery - Urology 07/24/21 [facility] [address] [place] [address] Deo Wiggins, DAVID Oncology 07/24/21 [address] [place] [address] Helen Piña RN Nurse Navigator - Registered Nurse 09/10/[address] [place] [address] Denisse Courtney, CON Nurse Navigator - Registered Nurse 10/14/[address] [place] [address]
[2022-02-17 18:13] LABS: PSA Diagnostic* < 0.06 ng/mL (0.10-4.00)
== END 2022-02-17 10:37 | disposition home or self-care (01) ==
PROVIDERS: Visit Provider Family Medicine
DX: C61 Malignant neoplasm of prostate (principal)
CPT/HCPCS: 84153

== ENCOUNTER 2022-05-28 09:24 | Outpatient (CLI) | payer MEDICARE, BC, SELFPAY | END 2022-05-28 09:25 | disposition home or self-care (01) | PROVIDERS: PCP Family Medicine; Visit Provider Family Medicine | DX: Z00.00 Encounter for general adult medical examination without abnormal findings (principal); E78.5 Hyperlipidemia, unspecified; I10 Essential (primary) hypertension; C61 Malignant neoplasm of prostate; I77.810 Thoracic aortic ectasia | CPT/HCPCS: 80053; 80061; 84153 ==

== ENCOUNTER 2022-06-08 10:33 | Outpatient (CLI) | payer MEDICARE, BC, SELFPAY ==
--- NOTE | 2022-06-08 11:00 | CRLHL7_ITS ---
For Patients: As a result of the Century Cures Act, medical imaging exams and procedure reports are released immediately into your electronic medical record. You may view this report before your referring provider. If you have questions, please contact your health care provider. Indication: ascending aortic aneurysm Technique: Noncontrast CT chest Please note that all CT scans at this facility use dose modulation, iterative reconstruction, and/or weight-based dosing when appropriate to reduce radiation dose to as low as reasonably achievable. Comparison: 04/26/2020 Findings: Ascending aorta measures 4.0 cm, as before. Vascular calcifications involving the coronary arteries. Cardiomegaly. Subcentimeter mediastinal lymph nodes. Left renal parapelvic cysts. Adrenal glands normal. Small hiatal hernia. Visualized thyroid normal. No compression fracture. Dependent atelectasis bilaterally. No pleural effusion or infiltrate. No suspicious nodule. Impression: Stable size of the ascending aorta. Mild dependent atelectasis. Cardiomegaly without pulmonary edema. Stable subcentimeter mediastinal lymph nodes. Small hiatal hernia. Please note that all CT scans at this facility use dose modulation, iterative reconstruction, and/or weight-based dosing when appropriate to reduce radiation dose to as low as reasonably achievable. Dictated by Chuck Mendez MD @ 06/08/2022 12:43:41 PM (Electronically Signed)
== END 2022-06-08 10:34 | disposition home or self-care (01) ==
PROVIDERS: PCP Family Medicine; Visit Provider Family Medicine
DX: I77.810 Thoracic aortic ectasia (principal); J98.11 Atelectasis; I51.7 Cardiomegaly; K44.9 Diaphragmatic hernia without obstruction or gangrene
CPT/HCPCS: 71250

== ENCOUNTER 2022-11-19 10:56 | Emergency (ER) | payer MEDICARE, BC, SELFPAY ==
[2022-11-19 11:17] VITALS: BP 131/78; PULSE 69; RESP 18; TEMP 36.3; O2SAT 97; BMI 32.5
--- NOTE | 2022-11-19 13:30 | ED.GENADULT ---
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 He fell like an amount yesterday and has been having pain in both of his hips, and in particular in his left knee, since then. He was pushing a shopping cart and it apparently ran over a bump in the carpeting around [place] This caused him to trip. It sounds like he fell over backwards. He landed and and on his elbows, and injured his left knee. He is not exactly sure how he injured this left knee. He might have bumped it although he might have twisted and sprained it. He was able to get up and walk. He was able to ambulate yesterday but his left knee feels tight and stiff. In particular he has had pain in the posterior aspect. He also has less severe pain in both hips. He did not head injuries head. Did not hurt his back. No chest pain or trouble breathing. No abdominal pain. Although he scraped his elbows those are no longer painful. His primary pain in his left knee and less so in his hips. He does not take any blood thinners. No numbness or tingling in his legs. He has noted that his left knee has gotten swollen. He is having trouble sleeping last night because the pain. He took some ibuprofen and some of his 's tramadol which was not very effective in managing his pain. Related Data Home Medications Medication Instructions Recorded Confirmed aspirin 81 mg tablet,delayed 81 mg PO DAILY 09/16/21 08/18/22 release Previous Rx's Medication Instructions Recorded sildenafil 100 mg tablet 100 mg PO DAILY PRN sexual 02/19/22 activity #18 tabs lisinopril 20 mg tablet 20 mg PO DAILY #90 tabs 05/28/22 rosuvastatin 10 mg tablet 10 mg PO QDAY #90 tabs 06/07/22 doxycycline hyclate 100 mg capsule 200 mg (2 x 100 mg) PO ONCE #2 caps 08/18/22 Allergies Allergy/AdvReac Type Severity Reaction Status Date / Time No Known Allergies Allergy Unknown Verified 08/18/22 18:28 [facility] Surgical History History of carpal tunnel surgery of left wrist ?Z98.890 - Other specified postprocedural states (ICD-10) History of open reduction and internal fixation (ORIF) procedure ?Z98.890 - Other specified postprocedural states (ICD-10) Status post prostatectomy ?Z90.79 - Acquired absence of other genital organ(s) (ICD-10) Family History Other Colon cancer Diabetes Prostate cancer Social History Smoking Status: Never smoker Do you use any of these nicotine containing products: None Second hand tobacco smoke exposure: No How often do you have a drink containing alcohol: never How often do you have six or more drinks on one occasion: Never AUDIT-C Alcohol total score: 0 Non-prescribed substance use: denies use Little interest or pleasure in doing things: not at all Feeling down, depressed, or hopeless: not at all service: No Exam Narrative: Exam Narrative: Constitutional: Appears well-developed and well-nourished. Alert. Conversant. Non toxic. HENT: Head: Atraumatic. Nose: Nose normal. Mouth/Throat: Oral mucosa is clear and moist. no trismus. Pharynx normal. Tonsils symmetric. No tonsillar enlargement, erythema, or exudate. Eyes: Conjunctivae normal. EOM normal. Pupils equal, round, and reactive to light. No scleral icterus. Neck: Normal range of motion. Neck supple. No tracheal deviation present. Cardiovascular: Normal rate, regular rhythm. No gallop. No friction rub. No murmur heard. Symmetric radial artery pulses Pulmonary/Chest: Effort normal. No stridor. No respiratory distress. No wheezes. No rales. No rhonchi . No tenderness. Musculoskeletal: Normal inspection of his back. No midline T or lumbar spine tenderness or step-off. Pelvis is stable. No hip bruising or ecchymosis. No abrasions. RUE: Normal range of motion. No tenderness. No deformity LUE: Normal range of motion. No tenderness. No deformity RLE: Normal range of motion. No edema. No tenderness. No deformity LLE: No tenderness of the femur, quadriceps, hamstrings, thigh. He has diffuse tenderness on the knee but most tender over the popliteal fossa. Subtle swelling. He is able to flex to about 90? in able to extend up until about 20? of flexion. He is not able to fully extend. No definite crepitus. No bony tenderness over the patella, proximal fibula. Ligamentous exam shows no obvious laxity but is limited by muscular guarding. Neurological: Alert and oriented to person, place, and time. Normal strength. CN II-VII intact. No sensory deficit. GCS eye subscore is 4. GCS verbal subscore is 5. GCS motor subscore is 6. Normal coordination Skin: Skin is warm and dry. No rash noted. No pallor. Normal capillary refill. Psychiatric: Normal mood. Normal affect. Const: Vital Signs, click to edit/add: Vital Signs - 24 hr 11/19/22 11:17 Temperature 97.4 F L Pulse Rate [Right Pulse Oximeter] 69 Respiratory Rate 18 Blood Pressure [Ri ght Upper Arm] 131/78 Pulse Oximetry 97 Oxygen Delivery Me thod Room Air Course Vital Signs Vital signs: Initial Vital Signs Temperature 97.4 F L 11/19/22 11:17 Temperature Source Temporal Artery Scan 11/19/22 11:17 Pulse Rate 69 11/19/22 11:17 Respiratory Rate 18 11/19/22 11:17 Blood Pressure 131/78 11/19/22 11:17 Blood Pressure Mean 95 11/19/22 11:17 Blood Pressure Position Sitting 11/19/22 11:17 Pulse Oximetry 97 11/19/22 11:17 Oxygen Delivery Method Room Air 11/19/22 11:17 Vital Signs Temperature 97.4 F L 11/19/22 11:17 Pulse Rate 69 11/19/22 11:17 Respiratory Rate 18 11/19/22 11:17 Blood Pressure 131/78 11/19/22 11:17 Pulse Oximetry 97 11/19/22 11:17 Oxygen Delivery Method Room Air 11/19/22 11:17 Temperature 97.4 F L 11/19/22 11:17 Pulse Rate 69 11/19/22 11:17 Respiratory Rate 18 11/19/22 11:17 Blood Pressure 131/78 11/19/22 11:17 Pulse Oximetry 97 11/19/22 11:17 Oxygen Delivery Method Room Air 11/19/22 11:17 Medical Decision Making MDM Narrative Medical decision making narrative: Pleasant 72-year-old male presents to the ER today for injuries after mechanical trip and fall that occurred yesterday at [employer]. His primary side pain within his left knee. He has fairly diffuse pain with mild swelling but predominant pain is posterior. Fortunately x-rays negative for any acute fracture. History not consistent with a complete knee joint dislocation. He is neurovascularly intact in the leg. Concern here is for possible ligamentous or meniscus injury. My initial ligamentous exam is negative but is very limited by muscular guarding. Discussed with the patient that at this point x-rays are negative in this may be a bruise or a simple sprain which could heal over the next few days. However there may be more significant ligamentous disruptions within the knee. Will place into a knee immobilizer temporarily. He will follow-up with orthopedics within the next 3-5 days if not improving. X-rays of the patient's hip and pelvis are negative for any acute fracture. He does not have any associated back pain, abdominal pain, chest pain. No neck pain or head injury. Prescription for Percocet/325 mg through [facility] tablets, provided. opiate precautions reviewed. Imaging Data RIght knee xr: Attestation: I have reviewed the pertinent imaging results. Radiologist's impression: FINDINGS: Alignment is anatomic. There is severe lateral patellofemoral compartment joint space narrowing as well as tricompartmental marginal osteophytes. No acute fracture is identified. Small knee joint effusion. Mild prepatellar soft tissue swelling. IMPRESSION: No acute osseous abnormality. xr hips and pelvis: Attestation: I have reviewed the pertinent imaging results. Radiologist's impression: FINDINGS: No acute fracture is identified. Alignment is anatomic. There is right superior hip joint space narrowing as well as marginal osteophytes involving both hips. No widening of the sacroiliac joints or pubic symphysis. Severe lower lumbar degenerative disc disease and facet arthropathy. IMPRESSION: No acute osseous abnormality. Discharge Plan Discharge Clinical Impression: Acute pain of left knee Patient Disposition: Home, Self-Care Condition: Stable Instructions: Knee Pain (ED) Additional Instructions: Use the knee immobilizer when you are up and around to help protect your knee. Ice for 20 minutes every 2-3 hours to help reduce swelling. Walk as tolerated to help avoid stiffness. If you are not improved within the next 3-5 days, follow-up with the orthopedic clinic. If they do not call you, you can call them at [phone]. Call tomorrow to schedule an appointment for recheck next week. If you get better, you can always cancel your appointment. Return to the ER right away if he have any worsening symptoms such as worsening knee pain, numbness or weakness in her legs trauma or any other concerns. Prescriptions: No Action aspirin 81 mg tablet,delayed release (DR/EC) 81 mg PO DAILY lisinopril 20 mg tablet 20 mg PO DAILY Qty: 90 3RF doxycycline hyclate 100 mg capsule 200 mg PO ONCE Qty: 2 0RF sildenafil 100 mg tablet 100 mg PO DAILY PRN (Reason: sexual activity) Qty: 18 4RF Rx Instructions: Patient goes through [facility] for this. rosuvastatin 10 mg tablet 10 mg PO QDAY Qty: 90 3RF Follow Up/Referrals: Xavier Joseph MD [Primary Care Provider] - Stand Alone Forms: [employer] Info Instructions
--- NOTE | 2022-11-19 13:56 | CRLHL7_ITS ---
For Patients: As a result of the Cures Act, medical imaging exams and procedure reports are released immediately into your electronic medical record. You may view this report before your referring provider. If you have questions, please contact your health care provider. INDICATION: Fall, bilateral hip pain. COMPARISON: None. TECHNIQUE: AP pelvis, AP and frog-leg lateral views of both hips. FINDINGS: No acute fracture is identified. Alignment is anatomic. There is right superior hip joint space narrowing as well as marginal osteophytes involving both hips. No widening of the sacroiliac joints or pubic symphysis. Severe lower lumbar degenerative disc disease and facet arthropathy. IMPRESSION: No acute osseous abnormality. Dictated by Shabana Diaz MD @ 11/19/2022 3:39:23 PM (Electronically Signed)
--- NOTE | 2022-11-19 13:56 | CRLHL7_ITS ---
For Patients: As a result of the Century Cures Act, medical imaging exams and procedure reports are released immediately into your electronic medical record. You may view this report before your referring provider. If you have questions, please contact your health care provider. INDICATION: Fall, knee pain. COMPARISON: Knee radiographs from 10/29/2020. TECHNIQUE: AP, lateral and sunrise views of the left knee. FINDINGS: Alignment is anatomic. There is severe lateral patellofemoral compartment joint space narrowing as well as tricompartmental marginal osteophytes. No acute fracture is identified. Small knee joint effusion. Mild prepatellar soft tissue swelling. IMPRESSION: No acute osseous abnormality. Dictated by Shabana Diaz MD @ 11/19/2022 3:36:26 PM (Electronically Signed)
[2022-11-19] MEDS: OxyCODONE/APAP 5-325 TABLET 1 TAB PO (14:40)
== END 2022-11-19 16:10 | disposition home or self-care (01) ==
PROVIDERS: Emergency Provider Emergency Medicine; PCP Family Medicine
DX: M25.562 Pain in left knee (principal)
CPT/HCPCS: 29505; 73521; 73562; 99283; 99284; A9270

== ENCOUNTER 2022-11-30 09:08 | Outpatient (CLI) | payer MEDICARE, BC, SELFPAY | END 2022-11-30 09:09 | disposition home or self-care (01) | LOC: LONREF 09:11 | PROVIDERS: PCP Family Medicine; Visit Provider Family Medicine | DX: C61 Malignant neoplasm of prostate (principal) | CPT/HCPCS: 84153 ==

== ENCOUNTER 2022-12-10 06:59 | Outpatient (CLI) | payer MEDICARE, BC, SELFPAY ==
--- OUTSIDE RECORDS SUMMARY | 2022-12-10 07:02 | XMS_ITS | Continuity of Care Document ---
Author Name Unknown Organization [facility] Address [address] [address] [place] [address] Phone Care Team Providers Care Community Service Director Name Role Phone Chuck Slater MD Unavailable Unavailable Procedures Procedure Date Sigmoidoscopy Flex; W/bx /mx 2 Colonoscopy Flex; W/bx /mx Colonoscopy W/Submucosal Injection Advance Directives Directive Yes / No Effective Date File Name No Information Encounters Encounter Description Practice Location Reason(s) For Visit Diagnoses Date Provider Providers Copied on Encounter [facility], [address] [address], [place], [place], [id number], tel:[phone] Gordon [facility]unce[facility] [employer] No Information Nohemy Woods. [address] [place] [address], [id number], . tel:[phone] Referring Provider: Tesfaye Leggett, [address] [place] [address], [address]. tel:[phone] [facility], [address] [address], [place], [id number], tel:[phone] [facility] No Information Nohemy Woods. [address] [place] [address], [id number], . tel:[phone] Referring Provider: Tesfaye Leggett, [address] [place] [address], [id number]. tel:[phone] [facility], [address] [address], [place], [id number], tel:[phone] [facility] No Information Nohemy Woods. [address] [facility], [place], [id number], [place]. tel:[phone] Referring Provider: Tesfaye Olivas MD D, [address] [place] [address], [address]. tel:[phone] Family History Family Member Type Diagnosis Age At Onset No Information Payers Payer name Insurance type Covered alliance party ID Authoriza mathew(s) Blue Cross Of [facility] [id number] Social History Type Description Quantity Date Captured Comments Sex Male Smoking Status No Information Chief Complaint And Reason For Visit No Information Reason For Referral Reason For Referral No Information History Of Present Illness Encounter Date Complaint History Of Prese nt Illness No Information Functional Status Date Functional Assessmen t No Information Instructions Date Instruction Additional Infor mation No Information Assessments Type Assessment Date No Information Patient Care Teams Name Effective Dates (start - stop) Status Members No Information
--- NOTE | 2022-12-10 07:15 | MR_ITS ---
[address] [address] Phone:?[phone] Fax:?[phone] Referring Physician Information: Luigi Peña M.D. [address] [place] [address] Phone:?[phone] Fax:[phone] Patient:Ranjith Ferris D.O.B:?1950 Sex:?Male Phone:?[phone] [facility] MRN:?[id number] Exam Date:?12/10/2022 EXAM: MRI of the LEFT KNEE, without contrast CLINICAL HISTORY: Left knee pain. Evaluate for occult fracture. COMPARISONS: Plain radiographs 11/19/2022 and 10/29/2020. TECHNICAL: MR sequences of the left knee: sagittals: PD, PDFS coronals: PD, STIR axials: PD, T2 FS CONTRAST: None SEDATION: None FINDINGS: Bones: No fracture, bone marrow contusion, or other suspicious bone marrow signal abnormality. Patellofemoral joint: Cartilage: There is diffuse full-thickness chondromalacia over the median patellar ridge, lateral patellar facet, trochlear groove, and lateral femoral trochlea with associated subchondral cystic changes. Retinacula: The medial and lateral retinacula are intact. Fat pads: The infrapatellar, quadriceps, and prefemoral fat pads are unremarkable. Knee joint: Effusion: Large left knee joint effusion. Popliteal cyst: Tiny popliteal cyst. Intra-articular bodies: There are multiple small sub-5 mm chondral bodies within the popliteus bursa. Posteromedial corner: There is marked semimembranosus-medial collateral ligament bursitis. Medial compartment: Medial meniscus: There is a 1.0 cm in length ill-defined free edge and inferiorly surfacing tear of the posterior horn of the medial meniscus. Cartilage: 1.0 x 1.0 cm area of slight grade II chondromalacia over the peripheral weightbearing portion of the medial femoral condyle. Lateral compartment: Lateral meniscus: Free edge fraying versus ill-defined free edge tear of the body of the lateral meniscus. No unstable lateral meniscal tear is seen. Cartilage: Intact. Ligaments: Anterior cruciate ligament: Intrasubstance anterior cruciate ligament ganglion without discrete ligamentous tear or acute ligamentous injury. Posterior cruciate ligament: Marked irregularity and ill-definition of the posterior cruciate ligament are findings most consistent with sequelae of high- grade tear. Medial collateral ligament: Intact. Posterior oblique ligament: Intact. Fibular collateral ligament: Intact. Posterolateral corner: The distal biceps femoris tendon, iliotibial band, popliteus tendon, popliteus muscle, popliteofibular ligament, and arcuate ligament are intact. Extensor mechanism: Patellar tendon: Intact. Quadriceps tendon: Intact. 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 IMPRESSION: 1. Diffuse full-thickness chondromalacia over the median patellar ridge, lateral patellar facet, trochlear groove, and lateral femoral trochlea with associated subchondral cystic changes. 1.0 x 1.0 cm area of slight grade II chondromalacia over the peripheral weightbearing portion of the medial femoral condyle. Multiple small sub-5 mm chondral bodies within the popliteus bursa. 2. Marked irregularity and ill-definition of the posterior cruciate ligament are findings most consistent with sequelae of high-grade tear. 3. 1.0 cm in length ill-defined free edge and inferiorly surfacing tear of the posterior horn of the medial meniscus. 4. Free edge fraying versus ill-defined free edge tear of the body of the lateral meniscus. No unstable lateral meniscal tear. 5. Intrasubstance anterior cruciate ligament ganglion without discrete ligamentous tear or acute ligamentous injury. 6. Marked semimembranosus-medial collateral ligament bursitis. 7. Large left knee joint effusion. Tiny popliteal cyst. 8. 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 9. No fracture of the left knee. RCB Electronically signed on 12/10/2022 11:17:00 AM by Khadar Swift M.D.
== END 2022-12-10 07:00 | disposition home or self-care (01) ==
LOC: MRI 07:00
PROVIDERS: PCP Family Medicine; Visit Provider Orthopaedic Surgery
DX: M25.562 Pain in left knee (principal); M94.262 Chondromalacia, left knee; S83.522A Sprain of posterior cruciate ligament of left knee, initial encounter; M25.462 Effusion, left knee; M71.22 Synovial cyst of popliteal space [Baker], left knee
CPT/HCPCS: 73721

== ENCOUNTER 2023-01-26 07:37 | Day surgery (SDC) | payer MEDICARE, BC, SELFPAY ==
[2023-01-26] VITALS (25 sets, daily range): BP systolic 100–147; BP diastolic 43–91; PULSE 39–78; RESP 12–20; TEMP 35.8–36.9; O2SAT 92–100; BMI 33.4
[2023-01-26] MEDS: OXYCODONE (CR) 10 MG TAB.ER.12H PO (07:42)
[2023-01-26] MEDS: ACETAMINOPHEN 500 MG TABLET 1000 MG PO ×3 (07:42→20:10)
[2023-01-26] MEDS: CELECOXIB 200 MG CAPSULE PO (07:42)
[2023-01-26] MEDS: LACTATED RINGERS 1000 ML 1,000 ML 100 ML IV ×2 (07:45→10:02)
--- NOTE | 2023-01-26 09:31 | SUR.PREOP ---
TIME OUT: 9:33 AM
[2023-01-26] MEDS: MIDAZOLAM HCL 1 MG/ML inj IVP (09:34)
[2023-01-26] MEDS: fentaNYL 100 MCG/2 ML inj IVP (09:34)
--- NOTE | 2023-01-26 09:41 | SUR.PREOP ---
TIME?OUT:?9:33 PT/RN/MDA?VERIFICATION?OF?SURGICAL?SITE,?PROCEDURE,?AND?CONSENT OBTAINED?PRIOR?TO?INVASIVE?PROCEDURE.
[2023-01-26] MEDS: CEFAZOLIN 2 GM INJ IVP (10:01)
[2023-01-26] MEDS: TRANEXAMIC ACID 100 MG/ML INJ 1000 MG IV (10:02)
--- NOTE | 2023-01-26 11:13 | CRLHL7_ITS ---
For Patients: As a result of the Cures Act, medical imaging exams and procedure reports are released immediately into your electronic medical record. You may view this report before your referring provider. If you have questions, please contact your health care provider. Indication: Post op left TKA Technique: Two views left knee pain Findings/Impression: Hardware from a left total knee arthroplasty is in satisfactory position. Bone alignment is normal. No sign of acute fracture. Postop changes are within normal limits. Dictated by Chuck Mendez MD @ 01/27/2023 6:18:07 AM (Electronically Signed)
--- NOTE | 2023-01-26 11:19 | P.ORPRC_ITS ---
Procedure Note Date of procedure: 01/26/23 Procedure: PREOPERATIVE DIAGNOSIS: Left knee osteoarthritis POSTOPERATIVE DIAGNOSIS: Left knee osteoarthritis NAME OF OPERATION: Left total knee arthroplasty SURGEON: Luigi Peña MD NEEDLE FELT MAKING MACHINE OPERATOR: CISCO Alves ANESTHESIA: Spinal ESTIMATED BLOOD LOSS: 0 mL COMPLICATIONS: None SPECIMENS: None DRAINS: None PREOPERATIVE ANTIBIOTICS: Ancef 2 grams IMPLANTS: 1. J&J Attune # 9 posterior stabilized femur 2. # 8 fixed-bearing tibia 3. # 9 posterior stabilized, 5 mm fixed-bearing polyethylene 4. 41 patella INDICATIONS: The patient is a 73-year-old with a longstanding history of severe, unrelenting left knee pain secondary to end-stage (grade IV) left knee osteoarthritis. Despite appropriate nonoperative management, including activity modification, anti-inflammatories, [id number] pain medication, bracing, p hysical therapy, and injections they continue to have pain and disability. Operative intervention was offered. The risks, benefits and expected outcomes were discussed in detail. These included but were not limited to: Infection, bleeding, injury to blood vessel or nerve, venous thromboembolism. All questions were answered to their satisfaction. Use of an assistant community manager was necessary throughout the case for patient positioning and safety, soft tissue retraction, and closure. PROCEDURE: Spinal anesthesia was administered. The patient was placed supine on the operating table. The assistant community manager made sure the patient was positioned appropriately. The lower extremity was prepped and draped in the usual sterile fashion. The limb was exsanguinated with the Som bandage. The pneumatic tourniquet was inflated to 300 mmHg. A standard anterior incision was made with the knee in flexion. Subcutaneous dissection was sharply taken through fascial layer #1. Full-thickness medial and lateral flaps were elevated. The assistant community manager retracted the soft tissues and protected them throughout the case. A standard medial parapatellar approach was made. The patella was everted. The infrapatellar fat pad was preserved. The menisci and cruciate ligaments were sharply d?brided. Marginal osteophytes were d?brided with the rongeur. The drill was used to penetrate the femoral canal. The canal was aspirated and irrigated with pulse lavage. The intramedullary femoral guide was placed for a 5-degree valgus cut, removing 12 mm off the distal femur. The saw was used to make the cut. Whitesides line and the trans epicondylar axis were marked. The femoral sizing guide was pinned onto the distal femur. Three degrees of external rotation nicely parallels the transepicondylar axis. Pins were placed for posterior referencing. The four-in-one cutting guide was pinned onto the distal femur. The anterior, posterior, and chamfer cuts were made. The assistant community manager protected the collateral ligaments. The box cutting guide was pinned. The box cuts were made. The boxed trial was placed and was an excellent fit. Drill holes for the lugs were made. Attention was then turned to the proximal tibia. The extramedullary tibial guide was placed for a neutral varus/valgus cut with 5 degrees of posterior slope, removing 2 mm based off the medial tibial surface. The assistant community manager protected the collateral ligaments and the neurovascular bundle. The saw was used to make the cut. Trial components were placed. The knee was tight in both flexion and extension. Therefore, we replaced the tibial cutting jig, advancing it 2 more mm distally and remade the cut. Trial components were placed and now the knee is nicely balanced in both flexion and extension. The trial components were removed. The tray was placed in appropriate rotation, parallel to our tibial cutting pins. It was pinned by the assistant community manager and the drill and the punch were used. The tray was removed. The punch was used again. We placed a bone plug in the femoral canal. Attention was then turned to the patella. [place] patellar thickness was 20 mm with a marked amount of bone loss. The lobster claw resection guide was used with the 7.5 mm pati and a saw blade used as an extra pati. The saw was used to make the cut. Drill holes were made by the assistant community manager. The trial was placed and was an excellent fit. Cancellous surfaces were irrigated with pulse lavage and thoroughly dried by the assistant community manager. We cemented the tibial component, then the femoral component. We impacted the 5 mm polyethylene onto the tibial tray. The knee was brought into full extension. We then cemented the patellar component. Excessive cement was removed. The cement was allowed to harden. The knee was taken through a range of motion and was found to be nicely balanced in both flexion and extension. The patella tracks centrally. The assistant community manager did a three minute dilute Betadine solution soak. The assistant community manager irrigated the wound with 3 liters of normal saline via pulse lavage. The assistant community manager reapproximated the extensor mechanism with #1 Vicryl in an interrupted eupvad-gh-giceq fashion. The assistant community manager then ran the extensor mechanism with a #1 PDO Stratafix. The assistant community manager closed the subcutaneous tissues with a 3-0 Stratafix and the skin with a running 3-0 Stratafix in a subcuticular fashion. Glue was used to seal the skin. The assistant community manager placed a dry dressing, ELDA stocking, and Polar Care. Sponge and needle counts were correct x2. The patient tolerated the procedure well. There were no apparent complications. They were carefully transferred to the hospital bed and taken to the postanesthesia care unit in satisfactory condition. PLAN: The patient will be mobilized with physical therapy. Aspirin will be used for DVT prophylaxis. They will be discharged to home once medically appropriate.
--- NOTE | 2023-01-26 11:38 | W.ANESCHARGE ---
Anesthesia Charges Start Date/Time Anesthesia Start Date: 01/26/23 Anesthesia Start Time: 09:41 Stop Date/Time Anesthesia Stop Date: 01/26/23 Anesthesia Stop Time: 11:57 Summary Extremes of Age - Over 70 or under 1: MDA
--- NOTE | 2023-01-26 11:58 | W.ANESCHARGE ---
Anesthesia Charges Start Date/Time Anesthesia Start Date: 01/26/23 Anesthesia Start Time: 09:41 Stop Date/Time Anesthesia Stop Date: 01/26/23 Anesthesia Stop Time: 11:57
--- NOTE | 2023-01-26 13:04 | W.PM.NB ---
Nerve Block Nerve Block Time Seen by Provider: 08:36 Date Seen: 01/26/23 Type of block requested by surgeon for post-operative analgesia: adductor canal Side: left Time out performed: Yes Verification of patient name: Yes Verification of date of : Yes Site marking: site marked Name of person performing procedure: Freddy Continuous monitoring Was continuous monitoring of O2 sat, B/P, teletypesetter monitor, recorded every 15 minutes?: Yes Procedure Checklist: sterile prep, needles and gloves Ultrasound guided. Images saved: Yes Medications given in 5ml increments after negative aspiration: Ropivicaine %: 0.5 mL: 20 Needle gauge: 20 Decadron (mg): 10 Precedex (mcg): 25 Patient tolerated procedure well: Yes Additional comments: Needle noted adjacent to nerve Block Charges Block Charge (with Pro Fee): Femoral Nerve Use of Ultrasound Machine for Block: Yes- US Guidance/pain block
--- NOTE | 2023-01-26 13:05 | P.NB_ITS ---
Nerve Block Nerve Block Time Seen by Provider: 08:36 Type of block requested by surgeon for post-operative analgesia: geniculars Side: left Time out performed: Yes Verification of patient name: Yes Verification of date of : Yes Site marking: site marked Name of person performing procedure: Freddy Continuous monitoring Was continuous monitoring of O2 sat, B/P, monitoring coordinator, recorded every 15 minutes?: Yes Procedure Checklist: sterile prep, needles and gloves Medications given in 5ml increments after negative aspiration: Ropivicaine %: 0.5 mL: 9 Needle gauge: 25 Patient tolerated procedure well: Yes Block Charges Block Charge (with Pro Fee): Genicular Nerve Block Use of Ultrasound Machine for Block: No
[2023-01-26] MEDS: LACTATED RINGERS 1000 ML 1,000 ML 75 ML IV (13:45)
--- NOTE | 2023-01-26 15:44 | PC.NURSE ---
shift note: pt to rm @ 1230 via bed. pt HR sacha. Dr. Plaza notified and tele applied to keep monitoring. BP stable. pt able to wiggle and tighten gluts @ 1430. Pt rating Lt knee pain 2/10 and tolerable. pt tolerating fluids. Pt had incont void x1. Ls clr. Pt on Post op vss. IV patent
--- NOTE | 2023-01-26 15:55 | P.IMCN_ITS ---
Date of Consult Consult date: 01/26/23 Requesting Physician: Orthopedics Primary Care Provider: Xavier Joseph MD Consult Narrative Narrative: HOSPITALIST CONSULT Procedure: NAME OF OPERATION: Left total knee arthroplasty SURGEON: Luigi Peña MD ANESTHESIA: Spinal ESTIMATED BLOOD LOSS: 0 mL COMPLICATIONS: None SPECIMENS: None DRAINS: None The hospital medicine team was asked by the orthopedic surgery team to manage the patient's hypertension, relative bradycardia postoperatively. There have been no perioperative complications. however, sinus bradycardia from 38-49 has been noted. Asymptomatic. Blood pressure is stable. Updated and reviewed the active medical problems, past medical history, past surgical history, social history, allergies and medications in our electronic EMR. From PCP: Major disease includes a history of hypertension treated since 2019, hyperlipidemia and he has had some slight statin intolerance is but he is tolerating the rosuvastatin. He has DJD of the hips and knees, ascending aortic aneurysm that has been stable at 4 cm and we are following with interval CT scans. He has a bulging disc at L3-4, adenomatous colon polyps, umbilical hernia, a history of prostate cancer treated with prostatectomy in 2021. He also has had a little hiatal hernia problem. Past surgeries include the prostatectomy in 2021, left carpal tunnel release in 2019 and previous right ankle surgery. Family history. There is no history of any anesthesia problems or bleeding problems or clotting problems. Father age 84 of a stroke and he had diabetes. Mother age 86 after hip fracture and she had hypertension. Patient had 4 brothers and 1 sister with 2 brothers having prostate cancer. No family history of colon cancer. PHYSICAL EXAM: CODE STATUS: FULL CODE CONSTITUTIONAL: Conversive, good historian. A/O. Knows setting and context. VITAL SIGNS: 120/91. Pulse 49. Rest per 16. Afebrile. O2 sat 94% on room air. Pulse has been 50s in the OR, 48-44 initially in the PACU. Since being on the floor a low of 39 at high of 49. HEENT: Normocephalic, atraumatic. PERRL, EOMI, conjunctivae pink, no scleral icterus. Ears and nose externally normal. Pharynx normal. NECK: No JVD. No carotid bruit, no thyromegaly, no adenopathy. CHEST: Clear to auscultation bilaterally HEART: S1 and S2 normal. ABDOMEN: Flat, soft, nontender. Normal bowel sounds. Moderately obese. EXTREMITIES: No edema. MUSCULOSKELETAL: NEURO: Cranial nerves intact. Mentation normal. Normal affect. SKIN: No rashes, petechiae, concerning changes PSYCHIATRIC: Mentation normal. INVESTIGATIONS: EMR Reviewed; Pre-OP Reviewed DISPOSITION: DVT: Agree with Ortho team decision GI: PO intake PFSH [facility] Medical History (Updated 01/26/23 @ 16:41 by Catarina Colon MD) Erectile dysfunction ?N52.9 - Male erectile dysfunction, unspecified (ICD-10) Osteoarthritis of hip ?M16.9 - Osteoarthritis of hip, unspecified (ICD-10) Hiatal hernia ?K44.9 - Diaphragmatic hernia without obstruction or gangrene (ICD-10) Diverticulosis of intestine ?K57.90 - Diverticulosis of intestine, part unspecified, without perforation or abscess without bleeding (ICD-10) Adenomatous polyp of colon ?D12.6 - Benign neoplasm of colon, unspecified (ICD-10) Prostate CA ?C61 - Malignant neoplasm of prostate (ICD-10) Hypertension ?I10 - Essential (primary) hypertension (ICD-10) Hyperlipidemia ?E78.5 - Hyperlipidemia, unspecified (ICD-10) Ascending aorta dilatation ?I77.810 - Thoracic aortic ectasia (ICD-10) Surgical History (Updated 01/26/23 @ 16:41 by Catarina Colon MD) Status post left knee replacement ?Z96.652 - Presence of left artificial knee joint (ICD-10) Status post prostatectomy ?Z90.79 - Acquired absence of other genital organ(s) (ICD-10) History of open reduction and internal fixation (ORIF) procedure ?Z98.890 - Other specified postprocedural states (ICD-10) History of carpal tunnel surgery of left wrist (02/16/19) ?Z98.890 - Other specified postprocedural states (ICD-10) Family History Other Colon cancer Diabetes Prostate cancer Social History What is your current living situation?: I presently have a place to live Problems where you live: no known problems In past 12 months, lack of transportation kept you from medical appts, meetings, work, or getting things needed for daily living: no In the past 12 mos, have been you worried that your food would run out before you had money to buy more?: never true In the past 12 mos, the food you bought just didn't last and you didn't have money to buy more?: never true Highest level of school completed/degree received: high school graduate Smoking Status: Former smoker Do you use any of these nicotine containing products: None Second hand tobacco smoke exposure: No How often do you have a drink containing alcohol: never How often do you have six or more drinks on one occasion: Never AUDIT-C Alcohol total score: 0 Non-prescribed substance use: denies use Caffeine: Yes How often does anyone, including family, friends and others, physically hurt you : never How often does anyone, including family, friends and others, insult or talk down to you: never How often does anyone, including family, friends and others, threaten you with harm: never How often does anyone, including family, friends and others, scream or curse at you: never Little interest or pleasure in doing things: not at all Feeling down, depressed, or hopeless: not at all service: Yes Meds Home Medications and Allergies Home Medications Medication Instructions Recorded Confirmed Type aspirin 81 mg tablet,delayed 81 mg PO DAILY 09/16/21 01/26/23 History release rosuvastatin 10 mg tablet 10 mg PO DAILY 01/26/23 01/26/23 History Allergies Allergy/AdvReac Type Severity Reaction Status Date / Time No Known Allergies Allergy Unknown Verified 01/20/23 07:29 Exam Const: Vital Signs, click to edit/add: Vital Signs - 24 hr 01/26/23 08:16 01/26/23 09:29 01/26/23 09:35 Temperature 98.5 F Pulse Rate 64 58 L 55 L Pulse Rate [Pulse Oximeter] Respiratory Rate 20 16 Blood Pressure 127/85 137/84 100/72 Blood Pressure [Ri ght Radial Artery] Pulse Oximetry 95 100 92 Oxygen Delivery Me thod Room Air Nasal Cannula Nasal Cannula Oxygen Flow Rate 2 2 01/26/23 11:55 01/26/23 12:00 01/26/23 12:05 Temperature 97.8 F Pulse Rate 56 L 52 L 56 L Pulse Rate [Pulse Oximeter] Respiratory Rate 14 12 12 Blood Pressure 102/67 103/67 108/69 Blood Pressure [Ri ght Radial Artery] Pulse Oximetry 97 95 96 Oxygen Delivery Me thod Room Air Oxygen Flow Rate 01/26/23 12:10 01/26/23 12:15 01/26/23 12:20 Temperature 97 F L Pulse Rate 53 L 55 L 51 L Pulse Rate [Pulse Oximeter] Respiratory Rate 14 18 14 Blood Pressure 110/79 115/81 121/74 Blood Pressure [Ri ght Radial Artery] Pulse Oximetry 96 95 98 Oxygen Delivery Me thod Room Air Oxygen Flow Rate 01/26/23 12:27 01/26/23 12:27 01/26/23 12:32 Temperature 96.4 F L 96.4 F L 96.4 F L Pulse Rate 48 L Pulse Rate [Pulse Oximeter] 48 L 48 L Respiratory Rate 16 16 16 Blood Pressure Blood Pressure [Ri ght Radial Artery] 107/81 107/81 107/81 Pulse Oximetry 96 96 Oxygen Delivery Me thod Room Air Room Air Room Air Oxygen Flow Rate 01/26/23 12:41 01/26/23 12:45 01/26/23 13:00 Temperature 96.4 F L 96.4 F L 96.7 F L Pulse Rate Pulse Rate [Pulse Oximeter] 47 L 47 L 44 L Respiratory Rate 16 16 16 Blood Pressure Blood Pressure [Ri ght Radial Artery] 107/43 L 112/77 112/84 Pulse Oximetry 96 96 98 Oxygen Delivery Me thod Room Air Room Air Room Air Oxygen Flow Rate 2 2 0 01/26/23 13:15 01/26/23 13:45 01/26/23 14:30 Temperature 96.7 F L 96.7 F L 96.7 F L Pulse Rate Pulse Rate [Pulse Oximeter] 39 L 43 L 49 L Respiratory Rate 16 16 16 Blood Pressure Blood Pressure [Ri ght Radial Artery] 117/68 130/78 120/91 H Pulse Oximetry 98 96 94 Oxygen Delivery Me thod Room Air Room Air Room Air Oxygen Flow Rate 0 0 0 Assessment and Plan Assessment and plan (1) Status post left knee replacement: Problem comment: LEFT, Mariana, 01/26/23 Hospital medicine team is happy to follow this patient through to discharge. The relative bradycardia already seems to be resolved. I agree with the VTE plan. I expect a routine postoperative course. Status: Acute (2) Hypertension: Problem comment: -lisinopril is on hold Status: Acute
[2023-01-26] MEDS: CEFAZOLIN 2 GM in 0.9 % SODIUM CHLORIDE Mini-bag 100 ML IVPB ×2 (16:40→23:31)
[2023-01-26] MEDS: OXYCODONE 5 MG TABLET PO ×3 (17:34→23:38)
[2023-01-26] MEDS: SENNOSIDES 1 TAB TABLET 2 TAB PO (20:11)
[2023-01-26] MEDS: ASPIRIN 81 MG TABLET EC PO (20:11)
[2023-01-27] MEDS: ACETAMINOPHEN 500 MG TABLET 1000 MG PO ×2 (02:37→08:01)
[2023-01-27 03:00] VITALS: BP 128/78; PULSE 78; RESP 18; TEMP 36.3; O2SAT 96
--- NOTE | 2023-01-27 06:30 | PC.NURSE ---
Shift note [id number]: Pt alert & oriented x 4 and able to make needs known. Evening nurse reported pt was incontinent of bladder x 1 though pt has been continent of bladder since that time, using urinal in bathroom for toileting. Last BM 01/26/23 per pt report. Dressing to L anterior knee noted to be C/D/I upon inspection. Pain to left knee has been controlled with scheduled Tylenol, PRN Oxycodone, rest, repositioning and cryo cuff. Pt reported pain 2/10 when asked before taking PRN Oxycodone though took to keep pain controlled before going to sleep last night.?CMS to LLE noted to be intact. Pt transferring well with assist of 1 using FWW and gait belt. IV SL after receiving last dose of IV ABX. ELDA stockings and plexi pulses worn to bilateral lower extremities.
[2023-01-27 06:50] LABS: Hematocrit 41.3 % (37.0-53.0); Hemoglobin* 13.1 gm/dL (13.5-17.5); Immature Granulocytes Pct Auto 0.2 %; Lymphocytes Percent Auto 5.3 % (20-44); Mean Corpuscular HGB Conc 32 gm/dL (32-36); Mean Corpuscular Hemoglobin 26 pg (26-34); Mean Corpuscular Volume 82 fL (80-100); Monocytes Percent Auto 2.9 % (0.0-11.0); Neutrophils Percent Auto 91.6 % (42.0-72.0); Platelet Count* 303 K/uL (140-440); RDW Coefficient of Variation % 13.8 % (11.5-15.5); Red Blood Count 5.03 m/uL (4.30-5.90); White Blood Count* 12.75 K/uL (4.50-11.00)
[2023-01-27 06:53] LABS: Slide Review Reflex No
[2023-01-27 07:02] LABS: INR 1.05 (0.91-1.10); Prothrombin Time 14.3 Seconds
[2023-01-27 07:06] LABS: Potassium* 4.9 mmol/L (3.6-5.1); Sodium* 138 mmol/L (135-149)
[2023-01-27 07:09] LABS: Blood Urea Nitrogen* 18 mg/dL (7-30); Creatinine* 0.8 mg/dL (0.5-1.5); Est. Creatinine Clearance* 67.93; Estimated Glomerular Filt Rate 93 ml/min
[2023-01-27 07:51] VITALS: BP 128/69; PULSE 63; PULSE 75; RESP 16; TEMP 37.3; O2SAT 97
[2023-01-27] MEDS: OXYCODONE 5 MG TABLET PO (08:01)
--- NOTE | 2023-01-27 08:22 | PM.ORPN ---
Subjective Subjective Date Seen: 01/27/23 Interval history: Pain well controlled Ortho Exam Narrative Exam Narrative: Dressing clean and dry No calf tenderness CMS normal Const Vital Signs, click to edit/add: Vital Signs - 24 hr 01/26/23 09:29 01/26/23 09:35 01/26/23 11:55 Temperature 97.8 F Pulse Rate 58 L 55 L 56 L Pulse Rate [Pulse Oximeter] Respiratory Rate 16 14 Blood Pressure 137/84 100/72 102/67 Blood Pressure [Right Arm] Blood Pressure [Right Radial Artery] Pulse Oximetry 100 92 97 Oxygen Delivery Method Nasal Cannula Nasal Cannula Room Air Oxygen Flow Rate 2 2 01/26/23 12:00 01/26/23 12:05 01/26/23 12:10 Temperature Pulse Rate 52 L 56 L 53 L Pulse Rate [Pulse Oximeter] Respiratory Rate 12 12 14 Blood Pressure 103/67 108/69 110/79 Blood Pressure [Right Arm] Blood Pressure [Right Radial Artery] Pulse Oximetry 95 96 96 Oxygen Delivery Method Oxygen Flow Rate 01/26/23 12:15 01/26/23 12:20 01/26/23 12:27 Temperature 97 F L 96.4 F L Pulse Rate 55 L 51 L 48 L Pulse Rate [Pulse Oximeter] Respiratory Rate 18 14 16 Blood Pressure 115/81 121/74 Blood Pressure [Right Arm] Blood Pressure [Right Radial Artery] 107/81 Pulse Oximetry 95 98 Oxygen Delivery Method Room Air Room Air Oxygen Flow Rate 01/26/23 12:27 01/26/23 12:32 01/26/23 12:41 Temperature 96.4 F L 96.4 F L 96.4 F L Pulse Rate Pulse Rate [Pulse Oximeter] 48 L 48 L 47 L Respiratory Rate 16 16 16 Blood Pressure Blood Pressure [Right Arm] Blood Pressure [Right Radial Artery] 107/81 107/81 107/43 L Pulse Oximetry 96 96 96 Oxygen Delivery Method Room Air Room Air Room Air Oxygen Flow Rate 2 01/26/23 12:45 01/26/23 13:00 01/26/23 13:15 Temperature 96.4 F L 96.7 F L 96.7 F L Pulse Rate Pulse Rate [Pulse Oximeter] 47 L 44 L 39 L Respiratory Rate 16 16 16 Blood Pressure Blood Pressure [Right Arm] Blood Pressure [Right Radial Artery] 112/77 112/84 117/68 Pulse Oximetry 96 98 98 Oxygen Delivery Method Room Air Room Air Room Air Oxygen Flow Rate 2 0 0 01/26/23 13:45 01/26/23 14:30 01/26/23 15:00 Temperature 96.7 F L 96.7 F L 96.7 F L Pulse Rate Pulse Rate [Pulse Oximeter] 43 L 49 L 52 L Respiratory Rate 16 16 16 Blood Pressure Blood Pressure [Right Arm] Blood Pressure [Right Radial Artery] 130/78 120/91 H 147/88 H Pulse Oximetry 96 94 94 Oxygen Delivery Method Room Air Room Air Room Air Oxygen Flow Rate 0 0 01/26/23 16:00 01/26/23 16:32 01/26/23 17:00 Temperature 96.7 F L 96.7 F L Pulse Rate 59 L Pulse Rate [Pulse Oximeter] 56 L 74 Respiratory Rate 18 16 Blood Pressure Blood Pressure [Right Arm] Blood Pressure [Right Radial Artery] 139/80 143/89 H Pulse Oximetry 98 95 Oxygen Delivery Method Room Air Room Air Oxygen Flow Rate 01/26/23 18:00 01/26/23 19:26 01/26/23 23:13 Temperature 98.1 F 98.1 F Pulse Rate 67 Pulse Rate [Pulse Oximeter] 78 78 Respiratory Rate 16 16 Blood Pressure Blood Pressure [Right Arm] Blood Pressure [Right Radial Artery] 140/80 H 140/80 H Pulse Oximetry 94 94 Oxygen Delivery Method Room Air Room Air Oxygen Flow Rate 01/26/23 23:29 01/27/23 03:00 01/27/23 07:51 Temperature 97.4 F L 97.3 F L 99.2 F Pulse Rate Pulse Rate [Pulse Oximeter] 66 78 63 Respiratory Rate 16 18 16 Blood Pressure Blood Pressure [Right Arm] 122/90 H 128/78 Blood Pressure [Right Radial Artery] 128/69 Pulse Oximetry 93 96 97 Oxygen Delivery Method Room Air Room Air Room Air Oxygen Flow Rate 0 0 Assessment and Plan Assessment and plan (1) Status post left knee replacement: Status: Acute Plan Doing well after left total knee arthroplasty DC home after PT
[2023-01-27] MEDS: SENNOSIDES 1 TAB TABLET 2 TAB PO (08:56)
[2023-01-27] MEDS: ASPIRIN 81 MG TABLET EC PO (08:56)
[2023-01-27] MEDS: ROSUVASTATIN CALCIUM 10 MG TABLET PO (08:56)
--- NOTE | 2023-01-27 10:26 | PC.NURSE ---
Discharge: Patient pleasant and cooperative. Patient vitally stable, lungs clear, BS WNL, IV removed, catheter intact. Patient left knee dressing C/D/I. Patient rates knee pain 2-3/10, 5 mg of oxy given once. Patient tolerating regular diet and urinating. Patient signed belongings sheet and discharge form, patient had no further questions regarding discharge. Patient left the floor to home by wheelchair at 1019.
== END 2023-01-27 10:19 | disposition home or self-care (01) ==
LOC: OR 07:38 → MEDSURG 07:43
PROVIDERS: PCP Family Medicine; Visit Provider Orthopaedic Surgery
PROC: (CPT 27447; principal; 2023-01-26 09:45)
DX: M17.12 Unilateral primary osteoarthritis, left knee (principal); G89.18 Other acute postprocedural pain; I10 Essential (primary) hypertension; R00.1 Bradycardia, unspecified
CPT/HCPCS: 27447; 01402; 36415; 64447; 64454; 73560; 76942; 82565; 84132; 84295; 84520; 85025; 85610; 97110; 97116; 97161; 97165; 97530; 97535; 99100; A9270; C1776; J0690; J1100; J2250; J2405; J2704; J2795; J3010; J7120

== ENCOUNTER 2023-03-22 13:39 | Outpatient (CLI) | payer MEDICARE, BC, SELFPAY ==
--- OUTSIDE RECORDS SUMMARY | 2023-03-22 13:44 | XMS_ITS | Clinical Summary ---
Author Name Unknown Organization [facility] Address [address] [place] [address] Care Team Providers Care Hvac Controls Technician Name Role Phone Nico Joseph MD Primary Care Provider [phone] Nico Joseph MD Unavailable [phone] Pardeep Gallagher MD Unavailable Allergies No known active allergies Medications Medication Sig Dispensed Refills Start Date End Date Status aspirin (ASA) 81 MG EC tablet Daily 0 Active doxycycline monohydrate (MONODOX) 100 MG capsule TAKE 1 CAPSULE BY MOUTH TWICE DAILY FOR 14 DAYS 0 06/27/2020 Active lisinopril (ZESTRIL) 20 MG tablet Daily 0 04/23/2021 Active Social History Tobacco Use Types Packs/Day Years Used Date Smoking Tobacco: Never Assessed Adolescent Education Answer Date Record ed Getting School Help Needed Not on file 12/06 Sex and Gender Information Value Date Recorded Sex Assigned at Not on file Gender Identity Not on file Sexual Orientation Not on file Last Filed Vital Signs [...] OF HM ORDERS 1950 CT COLONOGRAPHY 1950 FIT 1950 FLEX SIG 1950 sDNA (Cologuard) 1950 COLONOSCOPY 01/13/1960 COLORECTAL CANCER SCREENING 01/13/1960 HEPATITIS C SCREENING 01/13/1968 RSV VACCINE ( & 60+) (1 - 1-dose 60+ series) 2010 AORTIC ANEURYSM SCREENING (SYSTEM ASSIGNED) 2015 FALL RISK ASSESSMENT 2015 MEDICARE ANNUAL WELLNESS VISIT 2015 ZOSTER IMMUNIZATION (2 of 2) 07/17/2021 05/22/2021 COVID-19 Vaccine (4 - 2022- season) 2022 02/24/2021, 06/01/2020, 05/11/2020 INFLUENZA VACCINE (#1) 2022 11/29/2019 PHQ-2 (once per calendar year) 2023 06/22/2021 LIPID 04/23/2026 04/23/2021, 04/08, 04/19/2019 DTAP/TDAP/TD IMMUNIZATION (4 - Td or Tdap) 04/23/2031 04/23/2021, 10/17/2012, 10/17/2012, Additional history exists Pneumococcal Vaccine: 65+ Years Completed 04/14/2017, 03/25/2016 HPV IMMUNIZATION Aged Out No longer e ligible based on patient's age to complete this topic IPV IMMUNIZATION Aged Out No longer e ligible based on patient's age to complete this topic MENINGITIS IMMUNIZATION Aged Out No l onger eligible based on patient's age to complete this topic RSV MONOCLONAL ANTIBODY Aged Out No l onger eligible based on patient's age to complete this topic Care Teams Hvac Controls Technician Relationship Specialty Start Date End Date Nico Joseph MD [facility] [address] [place] [address] PCP - General Family Medicine 05/06/21 Nico Joseph MD [facility] [address] [place] [address] Referring Physician Family Medicine 05/12/21 Pardeep Gallagher MD [address] [place] [id number] Urology 05/12/21
--- OUTSIDE RECORDS SUMMARY | 2023-03-22 13:44 | XMS_ITS | Clinical Summary ---
Author Name Unknown Organization [facility] Address [place], [place] [address] Care Team Providers Care Process Improvement Specialist Name Role Phone Donna Norton MBBS Unavailable [phone] Deo Wiggins MBBS Unavailable [phone] Helen Piña RN Unavailable [phone] Xavier Joseph MD Primary Care Provider [phone] Denisse Courtney RN Unavailable [phone] Allergies No known active allergies Medications Medication Sig Dispensed Refills Start Date End Date Status aspirin (ECOTRIN) 81 mg enteric coated tablet Take 81 mg by mouth once daily. 0 Active lisinopriL (PRINIVIL; ZESTRIL) 20 mg tablet Take 20 mg by mouth once daily. 0 07/18/2021 Active acetaminophen (TYLENOL EXTRA STRGTH) 500 mg tablet Take 2 Tablets (1,000 mg) by mouth every 6 hours if needed for Pain. Max acetaminophen dose: 4000mg in 24 hrs. 30 Tablet 0 10/03/2021 Active docusate (COLACE) 100 mg capsuleIndications :Prostate cancer (HC) Take 1 Capsule (100 mg) by mouth once daily if needed for Constipation. Take to prevent constipation if taking narcotic pain medications. 20 Capsule 0 10/03/2021 Active hydrocortisone (Anusol-HC) 25 mg suppositoryIndicat ions:External hemorrhoids Insert 1 Suppository (25 mg) rectally in the morning and 1 Suppository (25 mg) in the evening. 20 Suppository 1 10/14/2021 Active sildenafil citrate (VIAGRA) 25 mg tabletIndications: Erectile dysfunction after radical prostatectomy Take 1 Tablet (25 mg) by mouth once daily if needed for Erectile Dysfunction (take maximum 3 times a week). Take 30min to 4 hours before sexual activity. 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 radical prostatectomy 10/14/2021 Elevated PSA 08/05/2021 Benign prostatic hyperplasia with urinary freque ncy 08/05/2021 Prostate cancer Family History Medical History Relation Name Comments Cancer-prostate Brother 1 Dany Cancer-prostate Brother 2 Benji Throat cancer Brother 3 Tucker Relation Name Status Comments Brother 1 Dany Brother 2 Benji Alive Brother 3 Tucker Alive Brother 4 Cabrera Alive Social History Tobacco Use Types Packs/Day Years Used Date Smoking Tobacco: Former Cigarettes Q uit: 08/06/1971 Smokeless Tobacco: Never Comments:4-6 cig per day onl y [employer] Alcohol Use Standard Drinks/Week Comments Not Currently 0 (1 standard drink = 0.6 oz pur e alcohol) none Social Connections Answer Date Recorded Frequency of Communication with Friends and Fami ly Not on file 06/16/2022 Sex and Gender Information Value Date Recorded Sex Assigned at Not on file Gender Identity Not on file Sexual Orientation Not on file Obstetrics History Last Filed Vital Signs Vital Sign Reading Time Taken Comments Blood Pressure 140/82 06/09/2022 9:18 AM CDT Pulse 64 06/09/2022 9:18 AM CDT Temperature 36.6 ??C (97.9 ??F) 06/09/2022 9:18 AM CD T Respiratory Rate 18 06/09/2022 9:18 AM CDT Oxygen Saturation 96% 06/09/2022 9:18 AM CDT Inhaled Oxygen Concentration - - Weight 111.1 kg (245 lb) 06/09/2022 9:18 AM CDT Height 182.9 cm (6') 06/09/2022 9:18 AM CDT Body Mass Index 33.23 06/09/2022 9:18 AM CDT Plan of Treatment Upcoming Encounters Date Type Department Care Team (Late st Contact Info) Description 04/22/2023 9:00 AM TOP STEEP TENDER Orders Only [facility] [address] [place] [address] 04/27/2023 10:00 AM TOP STEEP TENDER Office Visit [facility] [address] [place] [address] Donna Norton MBBS [address] [place] [address] [place] [address] Health Maintenance Due Date Last Done Comments Tdap 1961 Depression screening for age 12+ 1962 Hepatitis C screening for ag e 18-79 01/13/1968 Tetanus booster 1970 Colonoscopy through age 75 1995 Lipids for age 45-75 1995 Zoster (shingles) series for age 50+ (1 of 2) 01/13/2000 AAA screening age 65-74 2015 Medicare Wellness for age 65+ 2015 Pneumococcal series for age 65+ (1 of 1 - PCV) 2015 COVID-19 vaccine series (2022-24 season) 2022 09/16/2021, 02/24/2021, 06/01/2020, Additional history exists Influenza for age 65+ 11/06/2022 BMI (ht and wt on same day) for age 18+ 06/10/2023 06/09/2022, 12/02/2021, 10/14/2021, Additional history exists Advance Directives Latest Code Status on File Code Status Date Activated Date Inactivated Comments Full Code 10/03/2021 2:07 PM 10/04/2021 6:12 PM Question Answer Comments Code Status Discussion: Reviewed Preferences Care Teams Process Improvement Specialist Relationship Specialty Start Date End Date Xavier Joseph MD [address] [place] [address] PCP - General Family Practice 09/15/21 Donna Norton MBBS [address] [place] [address] Surgery - Urology 07/24/21 Deo Wiggins MBBS [address] [place] [address] Oncology 07/24/21 Helen Piña RN [address] [place] [id number] Nurse Navigator - Oncology Registered Nurse 09/10/21 Denisse Courtney, CON [address] [place] [id number] Nurse Navigator - Oncology Registered Nurse 10/14/21
--- OUTSIDE RECORDS SUMMARY | 2023-03-22 13:44 | XMS_ITS | Referral Summary ---
Author Name Unknown Organization [facility] Address [address] [place] [address] Care Team Providers Care Environmental Remediation Consultant Name Role Phone Nico Joseph MD Primary Care Provider [phone] Nico Joseph MD Unavailable [phone] Pardeep Gallagher MD Unavailable Allergies No known [...] 06/18/2021 2:42 PM CDT Plan of Treatment Not on file Care Teams Environmental Remediation Consultant Relationship Specialty Start Date End Date Nico Joseph MD [facility] [address] [place] [address] PCP - General Family Medicine 05/06/21 Nico Joseph MD [facility] [address] [place] [address] Referring Physician Family Medicine 05/12/21 Pardeep Gallagher MD [address] [id number] Urology 05/12/21
== END 2023-03-22 13:40 | disposition home or self-care (01) ==
LOC: LKVREF 13:42
PROVIDERS: PCP Family Medicine; Visit Provider Family Medicine
DX: C61 Malignant neoplasm of prostate (principal)
CPT/HCPCS: G0103

== ENCOUNTER 2023-05-03 07:04 | Outpatient (CLI) | payer MEDICARE, BC, SELFPAY ==
--- NOTE | 2023-05-03 08:19 | W.ANESCHARGE ---
Anesthesia Charges Start Date/Time Anesthesia Start Date: 05/03/23 Anesthesia Start Time: 07:55 Stop Date/Time Anesthesia Stop Date: 05/03/23 Anesthesia Stop Time: 08:18 Summary Extremes of Age - Over 70 or under 1: DIRECTOR ENVIRONMENTAL
--- NOTE | 2023-05-03 11:25 | W.ANESCHARGE ---
Anesthesia Charges Start Date/Time Anesthesia Start Date: 05/03/23 Anesthesia Start Time: 07:55 Stop Date/Time Anesthesia Stop Date: 05/03/23 Anesthesia Stop Time: 08:18 Summary Extremes of Age - Over 70 or under 1: MDA
== END 2023-05-03 07:05 | disposition home or self-care (01) ==
PROVIDERS: PCP Family Medicine; Visit Provider Internal Medicine
DX: Z86.010 Personal history of colon polyps (principal); K64.8 Other hemorrhoids; K57.30 Diverticulosis of large intestine without perforation or abscess without bleeding
CPT/HCPCS: 00812; 45378; 99100; J2704

== ENCOUNTER 2023-05-18 16:00 | Outpatient (RCR) | payer MEDICARE, BC, SELFPAY ==
--- NOTE | 2023-01-21 16:48 | PT.OPEX ---
[facility] Outpatient Eval PT [facility] Outpatient Eval Start: 01/21/23 13:15 Freq: Status: Active Protocol: Document 01/21/23 16:29 WADE (Rec: 01/21/23 16:45 WADE [id number]) E-signed By Richard Brown PT Physical Therapy Outpatient Evaluation Insurance Information Insurance Name Medicare B,Blue Cross/Blue Shield Medical Diagnosis Left knee OA Pre-op left knee TKA Treating Diagnosis Left knee pain Left quad weakness Left knee flexion contracture Referring MD Peña Subjective Subjective Pt. reports having progressive chronic left knee pain which worsened after a fall leading to further orthopedic assessment and decision to have a TKA. He has been able to maintain most of his normal ADL's and [employer] work including landscaping and farming but it has gotten progressively harder due to his knee pain and dysfunction. 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 He lives with his in a split level home with steps leading to each level. He will be spending most of his time on the main floor that has a bathroom, but will need to travel up 6 steps to upper level where his bedroom and shower are. Railings present. Good health history other than CA, HTN and high cholesterol controlled with meds. He needs to get a wheeled walker, a cane, and a raised toilet seat , otherwise he and his feel like his home environment will work for him after surgery. His is able to help him as needed. 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 Objective Other/Pertinent Objective 20-120 degrees of left knee ROM with flexion contracture Ambulation without assistive device with mild limp and flexed knee left quad contraction 3+/5 mild swelling left knee Assessment Assessment/Impression Objectively, pt. demonstrates; mild limp with some functional hip abductor weakness and flexed knee on left; left quad weakness; mild left knee swelling; hamstring tightness; 20-120 degrees of left knee ROM; normal UE AROM and strength bilaterally; and core deconditioning. He would benefit from skilled therapy for pre-op training and then post-op therapy following re- eval following surgery on . Primary Functional Limitations walking, squatting, steps, lifting Plan of Care Rehabilitation Potential Excellent Physical Therapy Goals 1. Pt. will be indep. with HEP for self maintenance in 8 weeks. 2. Pt. will be able to walk without a limp in 8 weeks without assistive device. 3. Pt. will demonstrate improved quad and core strength to functional level in 8 weeks. 4. Pt. will demonstrate functional knee AROM with 120 flexion and near full extension to allow regular ADL 's in 8-12 weeks. Coordination/Communication With Referral Source Treatment Plan/Direct Interventions Gait Training,Joint Mobilization,Manual Therapy, Neuromuscular Re-ed,Self-Care/ Home Management,Therapeutic Activities,Therapeutic Exercises Frequency/Duration One visit today, then re-eval and treat 2x/week after surgery starting 01/29/23. Patient Will Be Discharged From Therapy Independent w/HEP, Independently Progressing Evaluation Billing PT Eval No Charge Yes Complexity Low Certification Information Initial Certification Date 01/21/23 Ending Certification Date 04/21/23 Provider Signature Shows Agreement With POC & Medical Necessity Physician Signature & Date Requested Please Sign/Date Here Physician Comment/Change : Physician NPI Number #
== END 2023-07-01 10:38 | disposition home or self-care (01) ==
PROVIDERS: PCP Family Medicine; Visit Provider Orthopaedic Surgery
DX: M17.12 Unilateral primary osteoarthritis, left knee (principal); Z51.89 Encounter for other specified aftercare
CPT/HCPCS: 97110; 97116; 97140; 97161; 97164

== ENCOUNTER 2023-06-25 16:00 | Outpatient (RCR) | payer MEDICARE, BC, SELFPAY ==
--- NOTE | 2023-05-21 11:36 | PT.OPEX ---
PT [facility] Out[facility] Eval PT [facility] Outpatient Eval Start: 05/21/23 08:48 Freq: Status: Active Protocol: Document 05/21/23 09:40 WADE (Rec: 05/21/23 11:33 WADE [id number]) E-signed By Richard Brown PT Physical Therapy Outpatient Evaluation Insurance Information Insurance Name Medicare B Medical Diagnosis Bilateral shoulder pain Treating Diagnosis Decreased shoulder mobility Shoulder weakness Referring MD Joseph Subjective Subjective Pt. reports having bilateral posterior shoulder pain for a couple of years. He notices it when shoveling, reaching, and when sleeping on sides. He has limited ROM but his strength feels ok overall. He knows that he has some OA with recent TKA. 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 He hasn 't had any X-rays yet. Pain Comments 2-3 Date of Last Physician Visit 04/26/23 Current Work Status Retired Preferred Name [employer] Objective Other/Pertinent Objective Shoulder AROM: flexion 115 degrees right and 120 degrees left ER 60 degrees right and 65 degrees left IR L1 right T11 Bilateral shoulder strength: 4 +/5 throughout cuff with scapular stabilizer mild weakness Increased thoracic kyphosis and rounded shoulder posture Assessment Assessment/Impression Objectively, pt. demonstrates; increased thoracic kyphosis with rounded shoulders posture ; moderate limitations in bilateral shoulder flexion and abduction ROM with joint and soft tissue restrictions; moderate limitations in bilateral shoulder IR; and mild cuff and scapular weakness. He would benefit from skilled therapy working on progressive ROM and scapular/cuff strengthening. Primary Functional Limitations sleeping on sides, reaching, shoveling Plan of Care Rehabilitation Potential Excellent Physical Therapy Goals 1. Pt. will be indep. with HEP for self maintenance in 8 weeks. 2. Pt. will demonstrate improved shoulder AROM with 150 degrees of active flexion to allow overhead reaching in 8-12 weeks. 3. Pt. will be able to sleep without difficulty in 12 weeks. Coordination/Communication With Referral Source Treatment Plan/Direct Interventions Joint Mobilization,Manual Therapy,Self-Care/Home Management,Therapeutic Exercises Frequency/Duration weekly to every other week for 8-12 weeks Patient Will Be Discharged From Therapy Independent w/HEP, Independently Progressing Evaluation Billing Complexity Low Certification Information Initial Certification Date 05/21/23 Ending Certification Date 08/19/23 Provider Signature Shows Agreement With POC & Medical Necessity Physician Signature & Date Requested Please Sign/Date Here Physician Comment/Change : Physician NPI Number #
== END 2023-09-24 15:10 | disposition home or self-care (01) ==
PROVIDERS: PCP Family Medicine; Visit Provider Family Medicine
DX: M25.511 Pain in right shoulder (principal); M25.512 Pain in left shoulder; R29.898 Other symptoms and signs involving the musculoskeletal system; Z51.89 Encounter for other specified aftercare
CPT/HCPCS: 97110; 97140; 97161

== ENCOUNTER 2024-05-08 10:15 | Outpatient (CLI) | payer MEDICARE, BC, SELFPAY | END 2024-05-08 10:16 | disposition home or self-care (01) | PROVIDERS: PCP Family Medicine; Visit Provider Family Medicine | DX: E78.00 Pure hypercholesterolemia, unspecified (principal); I10 Essential (primary) hypertension; Z12.5 Encounter for screening for malignant neoplasm of prostate | CPT/HCPCS: 80048; 80061; 84153 ==

== ENCOUNTER 2024-08-28 10:47 | Outpatient (CLI) | payer MEDICARE, BC, SELFPAY | END 2024-08-28 10:48 | disposition home or self-care (01) | PROVIDERS: PCP Family Medicine; Visit Provider Family Medicine | DX: R41.3 Other amnesia (principal); I10 Essential (primary) hypertension | CPT/HCPCS: 82607; 84443 ==

== ENCOUNTER 2024-11-13 09:57 | Outpatient (CLI) | payer MEDICARE, BC, SELFPAY | END 2024-11-13 09:58 | disposition home or self-care (01) | LOC: NFLDREF 11-16 16:43 | PROVIDERS: PCP Family Medicine; Referring Provider Family Medicine; Visit Provider Family Medicine | DX: C61 Malignant neoplasm of prostate (principal) | CPT/HCPCS: 84153 ==